=== PATIENT | male | born 1940 | race Caucasian/White ===

== ENCOUNTER → 2018-03-27 | Outpatient (CLI) | payer MEDICARE ==
[2018-03-27 10:27] LABS: Blood Urea Nitrogen 16 mg/dL (9-20)
--- NOTE | 2018-03-27 11:42 | CT ---
EXAMINATION TYPE: CT urogram wo/w con DATE OF EXAM: 03/27/2018 COMPARISON: NONE HISTORY: microscopic hematuria CT DLP: 3280.7 mGycm, Automated Exposure Control for Dose Reduction was Utilized. CONTRAST: CT scan of the abdomen and pelvis is performed without oral and without and with IV Contrast, patient injected with 100 mL of Isovue 300. Urogram protocol with Three-D reconstructed images created on in dependent workstation and reviewed FINDINGS: KUB: Noncontrast images show some central vascular calcifications on the left. No distinct renal calc chris are seen bilaterally. Postcontrast images show symmetric cortical medullary uptake and excretion from both kidneys without evidence of hydronephrosis bilaterally. There are a few small simple appearing cyst centrally in the right kidney measuring roughly 1.5 cm in size seen best series 19 image 29 and image 30 anteriorly. N o suspicious solid or cystic renal mass is identified bilaterally. There is fairly satisfactory opacification of both ureters except for distal left ureter. No suspicio us calcification or dilatation is present. No worrisome mass or suspicious wall thickening or calculu s is identified in bladder. A few right-sided pelvic phleboliths are seen. LUNG BASES: There is posterior linear scarring and/or atelectasis. Coronary calcification in the dist al RCA distribution is noted. LIVER/GB: Liver is diffusely low dense relative to spleen on noncontrast images consistent with fatty infiltration. Cholecystectomy clips are present. PANCREAS: No significant abnormality is seen. SPLEEN: No significant abnormality is seen. ADRENALS: No significant abnormality is seen. BOWEL: Appendix is felt within normal limits extending medially from cecum. There is no suspicious sm all or large bowel dilatation. PROSTATE/SEMINAL VESICLES: Prostate gland is felt upper limits of normal in size. LYMPH NODES: No greater than 1cm abdominal or pelvic lymph nodes are appreciated. OSSEOUS STRUCTURES: There is moderate multilevel spurring in the thoracolumbar spine. There is advanc ed disc space narrowing lumbosacral junction. There is facet arthropathy lower lumbar levels. There i s moderate degenerative change in both hips. OTHER: There is moderate to severe calcified plaque in the aorta extending into branch vessels. Slig ht ectasia is seen. No greater than 3 cm aneurysmal change is identified. There are coils from bilateral inguinal hernia repair surgery. No suspicious recurrent hernia is seen .. IMPRESSION: 1. No suspicious finding is seen to account for patient's symptoms of microscopic hematuria.
== END | disposition home or self-care (01) ==
LOC: RADCTMAIN 09:49
PROVIDERS: ATTEND Urology
DX: R31.21 Asymptomatic microscopic hematuria (principal); Z88.0 Allergy status to penicillin
CPT/HCPCS: 82565; 84520; 74178; 36415; 74400; Q9967

== ENCOUNTER 2019-04-09 08:51 | Emergency (ER) | payer MEDICARE ==
[2019-04-09] MEDS ORDERED: SODIUM CHLORIDE 0.9% 1,000 ML IV STA ×2 (09:28)
[2019-04-09] MEDS ORDERED: methylPREDNISolone SOD SUCCI 125 MG/2 ML VIAL IV STA (09:28)
[2019-04-09] MEDS ORDERED: IPRATROPIUM-ALBUTEROL 3 ML NEB INHALATION STA (09:28)
--- NOTE | 2019-04-09 09:42 | ED ---
General Adult HPI - General Source: patient, RN notes reviewed, old records reviewed Mode of arrival: ambulatory Limitations: no limitations <Grace Pickett - Last Filed: 04/09/19 12:31> <Filiberto Mcintyre - Last Filed: 04/09/19 12:48> - General Chief complaint: Shortness of Breath Stated complaint: adriel Time Seen by Provider: 04/09/19 09:09 - History of Present Illness Initial comments: Patient is a 78-year-old male who presents emergency department today with progressive dyspnea for the past few days. Patient reports that he saw his clinical applications manager Dr. Hearn, started on new inhaler. Patient reports that it seems like he still continued difficulty breathing despite this inhaler, and states that he has had some throat and tongue irritation. Patient states that he's had some episodes of difficulty breathing and diaphoresis. Patient reportedly would be breathing quickly. Patient is here with his and daughter. They state that he's had no specific chest pain or nausea or vomiting. (Grace Pickett) - Related Data Home Medications Medication Instructions Recorded Confirmed Lisinopril [Zestril] 20 mg PO DAILY 04/09/19 04/09/19 Ranitidine HCl [Zantac] 150 mg PO DAILY PRN 04/09/19 04/09/19 Simvastatin [Zocor] 40 mg PO HS 04/09/19 04/09/19 Previous Rx's Medication Instructions Recorded Clindamycin [Cleocin] 450 mg PO TID 7 Days capsule 04/09/19 predniSONE 20 mg PO BID #10 tab 04/09/19 Allergies Allergy/AdvReac Type Severity Reaction Status Date / Time Penicillins Allergy Rash/Hives Verified 04/09/19 09:24 Review of Systems ROS Other: All systems not noted in ROS Statement are negative. <Grace Pickett - Last Filed: 04/09/19 12:31> ROS Other: All systems not noted in ROS Statement are negative. <Filiberto Mcintyre - Last Filed: 04/09/19 12:48> ROS Statement: Those systems with pertinent positive or pertinent negative responses have been documented in the HPI. Past Medical History Past Medical History: COPD, Hyperlipidemia, Hypertension History of Any Multi-Drug Resistant Organisms: None Reported Past Surgical History: Cholecystectomy, Hernia Repair Past Psychological History: No Psychological Hx Reported Smoking Status: Former smoker Past Alcohol Use History: None Reported Past Drug Use History: None Reported <Grace Pickett - Last Filed: 04/09/19 12:31> General Exam Limitations: no limitations General appearance: alert, in no apparent distress Head exam: Present: atraumatic, normocephalic, normal inspection Eye exam: Present: normal appearance, PERRL, EOMI. Absent: scleral icterus, c onjunctival injection, periorbital swelling ENT exam: Present: normal exam, mucous membranes moist Neck exam: Present: normal inspection. Absent: tenderness, meningismus, lymphadenopathy Respiratory exam: Present: wheezes (Waiting a right lower lung field.). Absent: normal lung sounds bilaterally, respiratory distress, rales, rhonchi, stridor Cardiovascular Exam: Present: regular rate, normal rhythm, normal heart sounds. Absent: systolic murmur, diastolic murmur, rubs, gallop, clicks GI/Abdominal exam: Present: soft, normal bowel sounds. Absent: distended, tenderness, guarding, rebound, rigid Extremities exam: Present: normal inspection, full ROM, normal capillary refill. Absent: tenderness, pedal edema, joint swelling, calf tenderness Back exam: Present: normal inspection Neurological exam: Present: alert, oriented X3, CN II-XII intact Psychiatric exam: Present: normal affect Skin exam: Present: warm, dry, intact, normal color. Absent: rash <Grace Pickett - Last Filed: 04/09/19 12:31> - General Exam Comments Initial Comments: Patient is a 78-year-old male. Alert and oriented. No significant distress. (Grace Pickett) Course <Filiberto Mcintyre - Last Filed: 04/09/19 12:48> Vital Signs 04/09/19 04/09/19 04/09/19 08:55 10:08 10:27 Temperature 98.4 F Pulse Rate 66 68 72 Respiratory 20 Rate Blood Pressure 158/72 O2 Sat by Pulse 96 Oximetry - Reevaluation(s) Reevaluation #1: 04/09/19 12:47 Patient reevaluated by myself, Dr. Mcintyre. Patient denies any dyspnea at all at this time. Patient complains of discomfort of the right side of the jaw. There is mild swelling of the right parotid gland, approximately 2 x 2 centimeters raised approximately half centimeter. There is some tenderness to this area. No abnormality noticed inside the mouth or otherwise on the face except for a small healing sore on the right lower lip. Patient states this is been there for over one week. Patient family updated on results and plan. They're comfortable with discharge home. Patient will be started with antibiotics for probable parotiditis with ENT follow-up. Patient also is advised close follow- up with his pulmonary physician. (Filiberto Mcintyre) Medical Decision Making - Lab Data Result diagrams: 04/09/19 10:08 04/09/19 10:08 - Radiology Data Radiology results: report reviewed <Grace Pickett - Last Filed: 04/09/19 12:31> - Lab Data Result diagrams: 04/09/19 10:08 04/09/19 10:08 <Filiberto Mcintyre - Last Filed: 04/09/19 12:48> - Lab Data Lab Results 04/09/19 04/09/19 04/09/19 Range/Units 10:08 10:08 10:08 WBC 8.1 (3.8-10.6) k/uL RBC 5.01 (4.30-5.90) m/uL Hgb 14.4 (13.0-17.5) gm/dL Hct 42.8 (39.0-53.0) % MCV 85.5 (80.0-100.0) fL MCH 28.6 (25.0-35.0) pg MCHC 33.5 (31.0-37.0) g/dL RDW 14.8 (11.5-15.5) % Plt Count 222 (150-450) k/uL Neutrophils % 62 % Lymphocytes % 25 % Monocytes % 8 % Eosinophils % 2 % Basophils % 1 % Neutrophils # 5.0 (1.3-7.7) k/uL Lymphocytes # 2.0 (1.0-4.8) k/uL Monocytes # 0.7 (0-1.0) k/uL Eosinophils # 0.2 (0-0.7) k/uL Basophils # 0.0 (0-0.2) k/uL PT (9.0-12.0) sec INR (<1.2) APTT (22.0-30.0) sec Sodium 140 (137-145) mmol/L Potassium 4.5 (3.5-5.1) mmol/L Chloride 107 (98-107) mmol/L Carbon Dioxide 23 (22-30) mmol/L Anion Gap 10 mmol/L BUN 19 (9-20) mg/dL Creatinine 0.91 (0.66-1.25) mg/dL Est GFR (CKD-EPI)AfAm >90 (>60 ml/min/1.73 sqM) Est GFR (CKD-EPI)NonAf 81 (>60 ml/min/1.73 sqM) Glucose 106 H (74-99) mg/dL Calcium 9.4 (8.4-10.2) mg/dL Magnesium 2.0 (1.6-2.3) mg/dL Total Bilirubin 1.5 H (0.2-1.3) mg/dL AST 29 (17-59) U/L ALT 50 (21-72) U/L Alkaline Phosphatase 42 (38-126) U/L Troponin I (0.000-0.034) ng/mL NT-Pro-B Natriuret Pep 90 pg/mL Total Protein 7.0 (6.3-8.2) g/dL Albumin 4.3 (3.5-5.0) g/dL 04/09/19 04/09/19 Range/Units 10:08 10:08 WBC (3.8-10.6) k/uL RBC (4.30-5.90) m/uL Hgb (13.0-17.5) gm/dL Hct (39.0-53.0) % MCV (80.0-100.0) fL MCH (25.0-35.0) pg MCHC (31.0-37.0) g/dL RDW (11.5-15.5) % Plt Count (150-450) k/uL Neutrophils % % Lymphocytes % % Monocytes % % Eosinophils % % Basophils % % Neutrophils # (1.3-7.7) k/uL Lymphocytes # (1.0-4.8) k/uL Monocytes # (0-1.0) k/uL Eosinophils # (0-0.7) k/uL Basophils # (0-0.2) k/uL PT 9.9 (9.0-12.0) sec INR 0.9 (<1.2) APTT 24.4 (22.0-30.0) sec Sodium (137-145) mmol/L Potassium (3.5-5.1) mmol/L Chloride (98-107) mmol/L Carbon Dioxide (22-30) mmol/L Anion Gap mmol/L BUN (9-20) mg/dL Creatinine (0.66-1.25) mg/dL Est GFR (CKD-EPI)AfAm (>60 ml/min/1.73 sqM) Est GFR (CKD-EPI)NonAf (>60 ml/min/1.73 sqM) Glucose (74-99) mg/dL Calcium (8.4-10.2) mg/dL Magnesium (1.6-2.3) mg/dL Total Bilirubin (0.2-1.3) mg/dL AST (17-59) U/L ALT (21-72) U/L Alkaline Phosphatase (38-126) U/L Troponin I <0.012 (0.000-0.034) ng/mL NT-Pro-B Natriuret Pep pg/mL Total Protein (6.3-8.2) g/dL Albumin (3.5-5.0) g/dL 04/09/19 10:52 EKG shows sinus rhythm normal EKG noted. Ventricular rate of 63 beats were minute. Verbal 184 ms. Correct duration 82 ms QT QTc is 432/442 ms. (Grace Pickett) Disposition Is patient prescribed a controlled substance at d/c from ED?: No Time of Disposition: 12:31 <Grace Pickett - Last Filed: 04/09/19 12:31> <Filiberto Mcintyre - Last Filed: 04/09/19 12:48> Clinical Impression: Parotitis not due to mumps, Shortness of breath Disposition: HOME SELF-CARE Condition: Good Instructions (If sedation given, give patient instructions): Emphysema (ED), Sialoadenitis (ED) Additional Instructions: Patient denies to follow-up with primary care doctor. Return to the emergency department if any alarming signs or symptoms occur. Take the medications as prescribed and follow-up with ENT as well. Patient advised to hold the inhaler use the steroids and antibiotics as prescribed. Prescriptions: Clindamycin [Cleocin] 450 mg PO TID 7 Days capsule predniSONE 20 mg PO BID #10 tab Referrals: Christian Potter DO [Primary Care Provider] - 1-2 days Morales Smallwood MD [STAFF PHYSICIAN] - 1-2 days
[2019-04-09 10:22] LABS: Basophils % (A) 1 %; Eosinophils # (A) 0.2 k/uL (0-0.7); Eosinophils % (A) 2 %; HCT 42.8 % (39.0-53.0); HGB 14.4 gm/dL (13.0-17.5); Lymphocytes % (A) 25 %; MCH 28.6 pg (25.0-35.0); MCHC 33.5 g/dL (31.0-37.0); MCV 85.5 fL (80.0-100.0); Mean Platelet Volume 7.7; Monocytes # (A) 0.7 k/uL (0-1.0); Monocytes % (A) 8 %; Neutrophils % (A) 62 %; Platelet Count 222 k/uL (150-450); RBC 5.01 m/uL (4.30-5.90); RDW 14.8 % (11.5-15.5); WBC 8.1 k/uL (3.8-10.6)
[2019-04-09 10:34] LABS: ALT 50 U/L (21-72); AST 29 U/L (17-59); Albumin 4.3 g/dL (3.5-5.0); Alkaline Phosphatase 42 U/L (38-126); Blood Urea Nitrogen 19 mg/dL (9-20); Calcium 9.4 mg/dL (8.4-10.2); Carbon Dioxide 23 mmol/L (22-30); Glucose 106 mg/dL (74-99); Potassium 4.5 mmol/L (3.5-5.1); Sodium 140 mmol/L (137-145); Total Bilirubin 1.5 mg/dL (0.2-1.3)
[2019-04-09 10:46] LABS: INR 0.9 (<1.2); Partial Thromboplastin Time 24.4 sec (22.0-30.0); Prothrombin Time 9.9 sec (9.0-12.0)
--- NOTE | 2019-04-09 10:49 | XR ---
EXAMINATION TYPE: XR chest 2V DATE OF EXAM: 04/09/2019 COMPARISON: NONE HISTORY: Shortness of breath TECHNIQUE: Frontal and lateral views of the chest are obtained. FINDINGS: Scattered senescent parenchymal changes noted. Hyperinflation compatible with COPD. No evidence for infiltrate. No evidence for atelectasis. Heart size is stable. Mediastinal structures are stable and grossly unremarkable. No evidence for hilar prominence. Degenerative changes dorsal spine. IMPRESSION: 1. No evidence for acute pulmonary disease.
[2019-04-09 10:50] LABS: Anion Gap 10 mmol/L; Chloride 107 mmol/L (98-107)
[2019-04-09 12:56] VITALS: BP 185/76; PULSE 65; RESP 19; TEMP 97.9
== END 2019-04-09 12:55 | disposition home or self-care (01) ==
LOC: EC 08:51
DX: R06.02 Shortness of breath (principal); K11.20 Sialoadenitis, unspecified; R61 Generalized hyperhidrosis; E78.5 Hyperlipidemia, unspecified; I10 Essential (primary) hypertension; Z87.09 Personal history of other diseases of the respiratory system; Z87.891 Personal history of nicotine dependence; Z79.899 Other long term (current) drug therapy; Z88.0 Allergy status to penicillin
CPT/HCPCS: 36415; 94640; 93005; 83880; 80053; 83735; 84484; 85025; 85610; 85730; 87040; 71046; 99285; 96374; 96361; J2930

== ENCOUNTER 2019-05-09 07:44 | Emergency (ER) | payer MEDICARE ==
--- NOTE | 2019-05-09 08:22 | ED ---
General Adult HPI - General Chief complaint: Weakness Stated complaint: Weakness Time Seen by Provider: 05/09/19 07:45 Source: patient, EMS, RN notes reviewed Mode of arrival: EMS Limitations: no limitations - History of Present Illness Initial comments: 78-year-old male presents with episode of palpitations, lightheadedness and diaphoresis. Symptoms began this morning upon wakening. He has recent diagnosis of atrial fibrillation within the past one week. He was started on anticoagulation as well as metoprolol 50 mg once daily. At the onset of the symptoms he had not taken his medication. He felt generalized weakness. No focal numbness or weakness. No headache. He had no chest pain associated with his palpitations. His symptoms have mostly resolved with time my evaluation he feels some generalized weakness but is otherwise without complaint. He had taken his metoprolol prior to arrival. Denies nausea vomiting or diarrhea. Denies dysuria or hematuria. Denies melena or bright red rectal bleeding. - Related Data Home Medications Medication Instructions Recorded Confirmed Ranitidine HCl [Zantac] 150 mg PO DAILY PRN 04/09/19 05/09/19 Simvastatin [Zocor] 40 mg PO HS 04/09/19 05/09/19 Albuterol Inhaler [Ventolin Hfa 1 - 2 puff INHALATION RT-Q6H PRN 05/04/19 05/09/19 Inhaler] Previous Rx's Medication Instructions Recorded Apixaban [Eliquis] 5 mg PO BID #60 tab 05/06/19 Metoprolol Succinate (ER) [Toprol 50 mg PO DAILY #30 tab 05/06/19 Xl] Allergies Allergy/AdvReac Type Severity Reaction Status Date / Time Penicillins Allergy Rash/Hives Verified 05/09/19 07:50 Review of Systems ROS Statement: Those systems with pertinent positive or pertinent negative responses have been documented in the HPI. ROS Other: All systems not noted in ROS Statement are negative. Past Medical History Past Medical History: Hyperlipidemia, Hypertension History of Any Multi-Drug Resistant Organisms: None Reported Past Surgical History: Cholecystectomy, Hernia Repair, Orthopedic Surgery Additional Past Surgical History / Comment(s): Left elbow bones chips removed Past Psychological History: No Psychological Hx Reported Smoking Status: Former smoker Past Alcohol Use History: None Reported Past Drug Use History: None Reported - Past Family History Father Family Medical History: Congestive Heart Failure (CHF) Mother Family Medical History: Cancer General Exam Limitations: no limitations General appearance: alert, in no apparent distress Head exam: Present: atraumatic, normocephalic Eye exam: Present: normal appearance, PERRL, EOMI ENT exam: Present: normal exam Neck exam: Present: normal inspection. Absent: tenderness, meningismus Respiratory exam: Present: normal lung sounds bilaterally, respiratory distress Cardiovascular Exam: Present: regular rate, normal rhythm GI/Abdominal exam: Present: soft. Absent: distended, tenderness, guarding Extremities exam: Present: normal inspection, normal capillary refill. Absent: pedal edema Neurological exam: Present: alert, oriented X3, CN II-XII intact. Absent: motor sensory deficit Psychiatric exam: Present: normal affect, normal mood Skin exam: Present: warm, dry, intact, pallor Course Vital Signs 05/09/19 05/09/19 05/09/19 07:50 09:11 09:30 Temperature 98.4 F 98.2 F Pulse Rate 62 56 L 58 L Respiratory 18 16 18 Rate Blood Pressure 175/65 170/75 158/68 O2 Sat by Pulse 95 96 98 Oximetry EKG Findings - EKG Comments: EKG Findings:: EKG: Sinus bradycardia rate of 59, OR interval 182, QRS duration 84, QTC 423, no ST segment elevation or depression. Medical Decision Making - Medical Decision Making 78-year-old male recent diagnosis of atrial fibrillation presenting with palpitations, lightheadedness. I suspect based on history that this patient was in A. fib and had converted prior to arrival. He had taken his dose of metoprolol XL prior to arrival. He is in sinus rhythm stable vitals upon arrival. He has normal CBC, normal CMP mild lactic acid 2.7 treated with normal saline. He has chest x-ray with no acute cardiopulmonary disease. On reeva luation he feels completely well, he has no complaints. All for observation for telemetry and cardiology consultation, he declines. He will monitor both blood pressure and heart rate at home. He will return with worsening or changing symptoms. He does have close follow-up with cardiology. - Lab Data Result diagrams: 05/09/19 08:07 05/09/19 08:07 Lab Results 05/09/19 05/09/19 05/09/19 Range/Units 08:07 08:07 08:07 WBC 7.8 (3.8-10.6) k/uL RBC 4.56 (4.30-5.90) m/uL Hgb 13.4 (13.0-17.5) gm/dL Hct 40.7 (39.0-53.0) % MCV 89.2 (80.0-100.0) fL MCH 29.3 (25.0-35.0) pg MCHC 32.9 (31.0-37.0) g/dL RDW 13.6 (11.5-15.5) % Plt Count 213 (150-450) k/uL Neutrophils % 64 % Lymphocytes % 22 % Monocytes % 9 % Eosinophils % 2 % Basophils % 0 % Neutrophils # 5.0 (1.3-7.7) k/uL Lymphocytes # 1.7 (1.0-4.8) k/uL Monocytes # 0.7 (0-1.0) k/uL Eosinophils # 0.2 (0-0.7) k/uL Basophils # 0.0 (0-0.2) k/uL PT (9.0-12.0) sec INR (<1.2) APTT (22.0-30.0) sec Sodium 139 (137-145) mmol/L Potassium 3.9 (3.5-5.1) mmol/L Chloride 108 H (98-107) mmol/L Carbon Dioxide 21 L (22-30) mmol/L Anion Gap 10 mmol/L BUN 20 (9-20) mg/dL Creatinine 0.90 (0.66-1.25) mg/dL Est GFR (CKD-EPI)AfAm >90 (>60 ml/min/1.73 sqM) Est GFR (CKD-EPI)NonAf 82 (>60 ml/min/1.73 sqM) Glucose 130 H (74-99) mg/dL Plasma Lactic Acid Se 2.7 H* (0.7-2.0) mmol/L Calcium 9.1 (8.4-10.2) mg/dL Magnesium 2.0 (1.6-2.3) mg/dL Total Bilirubin 1.2 (0.2-1.3) mg/dL AST 32 (17-59) U/L ALT 64 (21-72) U/L Alkaline Phosphatase 36 L (38-126) U/L Troponin I (0.000-0.034) ng/mL NT-Pro-B Natriuret Pep pg/mL Total Protein 6.4 (6.3-8.2) g/dL Albumin 3.7 (3.5-5.0) g/dL Urine Color Urine Appearance (Clear) Urine pH (5.0-8.0) Ur Specific [place] (1.001-1.035) Urine Protein (Negative) Urine Glucose (UA) (Negative) Urine Ketones (Negative) Urine Blood (Negative) Urine Nitrite (Negative) Urine Bilirubin (Negative) Urine Urobilinogen (<2.0) mg/dL Ur Leukocyte Esterase (Negative) 05/09/19 05/09/19 05/09/19 Range/Units 08:07 08:07 08:07 WBC (3.8-10.6) k/uL RBC (4.30-5.90) m/uL Hgb (13.0-17.5) gm/dL Hct (39.0-53.0) % MCV (80.0-100.0) fL MCH (25.0-35.0) pg MCHC (31.0-37.0) g/dL RDW (11.5-15.5) % Plt Count (150-450) k/uL Neutrophils % % Lymphocytes % % Monocytes % % Eosinophils % % Basophils % % Neutrophils # (1.3-7.7) k/uL Lymphocytes # (1.0-4.8) k/uL Monocytes # (0-1.0) k/uL Eosinophils # (0-0.7) k/uL Basophils # (0-0.2) k/uL PT 9.7 (9.0-12.0) sec INR 0.9 (<1.2) APTT 23.5 (22.0-30.0) sec Sodium (137-145) mmol/L Potassium (3.5-5.1) mmol/L Chloride (98-107) mmol/L Carbon Dioxide (22-30) mmol/L Anion Gap mmol/L BUN (9-20) mg/dL Creatinine (0.66-1.25) mg/dL Est GFR (CKD-EPI)AfAm (>60 ml/min/1.73 sqM) Est GFR (CKD-EPI)NonAf (>60 ml/min/1.73 sqM) Glucose (74-99) mg/dL Plasma Lactic Acid Se (0.7-2.0) mmol/L Calcium (8.4-10.2) mg/dL Magnesium (1.6-2.3) mg/dL Total Bilirubin (0.2-1.3) mg/dL AST (17-59) U/L ALT (21-72) U/L Alkaline Phosphatase (38-126) U/L Troponin I <0.012 (0.000-0.034) ng/mL NT-Pro-B Natriuret Pep 109 pg/mL Total Protein (6.3-8.2) g/dL Albumin (3.5-5.0) g/dL Urine Color Urine Appearance (Clear) Urine pH (5.0-8.0) Ur Specific [place] (1.001-1.035) Urine Protein (Negative) Urine Glucose (UA) (Negative) Urine Ketones (Negative) Urine Blood (Negative) Urine Nitrite (Negative) Urine Bilirubin (Negative) Urine Urobilinogen (<2.0) mg/dL Ur Leukocyte Esterase (Negative) 05/09/19 Range/Units 09:30 WBC (3.8-10.6) k/uL RBC (4.30-5.90) m/uL Hgb (13.0-17.5) gm/dL Hct (39.0-53.0) % MCV (80.0-100.0) fL MCH (25.0-35.0) pg MCHC (31.0-37.0) g/dL RDW (11.5-15.5) % Plt Count (150-450) k/uL Neutrophils % % Lymphocytes % % Monocytes % % Eosinophils % % Basophils % % Neutrophils # (1.3-7.7) k/uL Lymphocytes # (1.0-4.8) k/uL Monocytes # (0-1.0) k/uL Eosinophils # (0-0.7) k/uL Basophils # (0-0.2) k/uL PT (9.0-12.0) sec INR (<1.2) APTT (22.0-30.0) sec Sodium (137-145) mmol/L Potassium (3.5-5.1) mmol/L Chloride (98-107) mmol/L Carbon Dioxide (22-30) mmol/L Anion Gap mmol/L BUN (9-20) mg/dL Creatinine (0.66-1.25) mg/dL Est GFR (CKD-EPI)AfAm (>60 ml/min/1.73 sqM) Est GFR (CKD-EPI)NonAf (>60 ml/min/1.73 sqM) Glucose (74-99) mg/dL Plasma Lactic Acid Se (0.7-2.0) mmol/L Calcium (8.4-10.2) mg/dL Magnesium (1.6-2.3) mg/dL Total Bilirubin (0.2-1.3) mg/dL AST (17-59) U/L ALT (21-72) U/L Alkaline Phosphatase (38-126) U/L Troponin I (0.000-0.034) ng/mL NT-Pro-B Natriuret Pep pg/mL Total Protein (6.3-8.2) g/dL Albumin (3.5-5.0) g/dL Urine Color Yellow Urine Appearance Clear (Clear) Urine pH 5.5 (5.0-8.0) Ur Specific [place] 1.019 (1.001-1.035) Urine Protein Negative (Negative) Urine Glucose (UA) Negative (Negative) Urine Ketones Negative (Negative) Urine Blood Negative (Negative) Urine Nitrite Negative (Negative) Urine Bilirubin Negative (Negative) Urine Urobilinogen <2.0 (<2.0) mg/dL Ur Leukocyte Esterase Negative (Negative) Disposition Clinical Impression: Palpitations, Dehydration Disposition: HOME SELF-CARE Condition: Fair Instructions (If sedation given, give patient instructions): Heart Palpitations (ED) Is patient prescribed a controlled substance at d/c from ED?: No Referrals: Christian Potter DO [Primary Care Provider] - 1-2 days Danyel Cervantes MD [STAFF PHYSICIAN] - 1-2 days Time of Disposition: 10:37
--- NOTE | 2019-05-09 08:32 | XR ---
EXAMINATION TYPE: XR chest 2V DATE OF EXAM: 05/09/2019 COMPARISON: None HISTORY: 78-year-old male with weakness TECHNIQUE: PA and lateral views FINDINGS: Heart normal size. Mild elongation thoracic aorta. Pulmonary vasculature within normal limits. Strand y atelectasis in lower lungs. No consolidation or pleural effusion. IMPRESSION: No acute cardiopulmonary process.
[2019-05-09 08:53] LABS: Basophils % (A) 0 %; Eosinophils # (A) 0.2 k/uL (0-0.7); Eosinophils % (A) 2 %; HCT 40.7 % (39.0-53.0); HGB 13.4 gm/dL (13.0-17.5); Lymphocytes # (A) 1.7 k/uL (1.0-4.8); Lymphocytes % (A) 22 %; MCH 29.3 pg (25.0-35.0); MCHC 32.9 g/dL (31.0-37.0); MCV 89.2 fL (80.0-100.0); Monocytes # (A) 0.7 k/uL (0-1.0); Monocytes % (A) 9 %; Neutrophils % (A) 64 %; Platelet Count 213 k/uL (150-450); RBC 4.56 m/uL (4.30-5.90); RDW 13.6 % (11.5-15.5); WBC 7.8 k/uL (3.8-10.6)
[2019-05-09 09:02] LABS: INR 0.9 (<1.2); Partial Thromboplastin Time 23.5 sec (22.0-30.0); Prothrombin Time 9.7 sec (9.0-12.0)
[2019-05-09 09:09] LABS: ALT 64 U/L (21-72); AST 32 U/L (17-59); African American GFR (CKD) >90 (>60 ml/min/1.73 sqM); Albumin 3.7 g/dL (3.5-5.0); Alkaline Phosphatase 36 U/L (38-126); Anion Gap 10 mmol/L; Blood Urea Nitrogen 20 mg/dL (9-20); Calcium 9.1 mg/dL (8.4-10.2); Carbon Dioxide 21 mmol/L (22-30); Chloride 108 mmol/L (98-107); Glucose 130 mg/dL (74-99); Potassium 3.9 mmol/L (3.5-5.1); Sodium 139 mmol/L (137-145); Total Bilirubin 1.2 mg/dL (0.2-1.3); Total Protein 6.4 g/dL (6.3-8.2)
[2019-05-09] MEDS ORDERED: SODIUM CHLORIDE 0.9% 500 ML 500 ML IV ONE (09:24)
[2019-05-09 09:32] VITALS: RESP 18
[2019-05-09 10:25] LABS: Appearance,Urine Clear (Clear); Bilirubin,Urine Negative (Negative); Blood,Urine Negative (Negative); Color,Urine Yellow; Glucose,Urine (UA) Negative (Negative); Ketones,Urine Negative (Negative); Leukocyte Esterase,Urine Negative (Negative); Nitrite,Urine Negative (Negative); PH, Urine 5.5 (5.0-8.0); Protein,Urine Negative (Negative); Specific Gravity,Urine 1.019 (1.001-1.035); Urobilinogen,Urine <2.0 mg/dL (<2.0)
[2019-05-09 10:52] VITALS: BP 170/88; PULSE 55; TEMP 98
== END 2019-05-09 10:49 | disposition home or self-care (01) ==
LOC: EC 07:44
DX: R00.2 Palpitations (principal); E86.0 Dehydration; R53.1 Weakness; R42 Dizziness and giddiness; R61 Generalized hyperhidrosis; E78.5 Hyperlipidemia, unspecified; Z86.79 Personal history of other diseases of the circulatory system; Z82.49 Family history of ischemic heart disease and other diseases of the circulatory system; Z87.891 Personal history of nicotine dependence; Z79.899 Other long term (current) drug therapy; Z88.0 Allergy status to penicillin
CPT/HCPCS: 36415; 71046; 80053; 81003; 83605; 83735; 83880; 84484; 85025; 85610; 85730; 93005; 96360; 99285

== ENCOUNTER → 2019-06-19 | Outpatient (CLI) | payer MEDICARE ==
--- NOTE | 2019-06-19 08:15 | CT ---
EXAMINATION TYPE: CT iac wo/w con DATE OF EXAM: 06/19/2019 COMPARISON: 05/11/2014 HISTORY: Rt ear pain CT DLP: 300 mGycm Automated exposure control for dose reduction was used. CONTRAST: CT scan of the IACs is performed without and with IV Contrast, patient injected with 100 mL of Isovue 300. FINDINGS: The external auditory canals are patent bilaterally. Mastoid air cells show no evidence of abnormal opacification bilaterally. The middle ear ossicles are symmetric and unremarkable. There is no evidence of suspicious surrounding soft tissue density to suggest cholesteatoma. There is stab le chronic thickening of the right tympanic membrane. The scutum is preserved bilaterally. The cochlea and the semicircular canals are symmetric and unrem arkable. Vestibular aqueduct and internal carotid canal appear unremarkable. Temporomandibular join ts are maintained bilaterally. IMPRESSION: 1. Stable chronic thickening of the right tympanic membrane.
== END | disposition home or self-care (01) ==
LOC: RADCTMAIN 06:05
PROVIDERS: ATTEND Otolaryngology
DX: H92.01 Otalgia, right ear (principal); H73.891 Other specified disorders of tympanic membrane, right ear; Z88.0 Allergy status to penicillin
CPT/HCPCS: 82565; 84520; 70482; 36415; Q9967

== ENCOUNTER 2019-07-03 10:35 | Observation (INO) | payer MEDICARE ==
[2019-07-03] MEDS ORDERED: ASPIRIN 81 MG PO STA (10:56)
[2019-07-03] MEDS ORDERED: NITROGLYCERIN OINT 1 INCH/GM PACKET TOPICAL STA (10:56)
--- NOTE | 2019-07-03 10:59 | ED ---
General Adult HPI - General Chief complaint: Chest Pain Stated complaint: Chest pain Time Seen by Provider: 07/03/19 10:46 Source: patient, family, RN notes reviewed Mode of arrival: wheelchair Limitations: no limitations - History of Present Illness Initial comments: Patient is a pleasant 79-year-old male presenting to the emergency Department with complaints of chest discomfort. Onset of symptoms was around 4 AM. Patient woke from sleep with chest pressure that was severe. Discomfort is sternal without radiation. Discomfort is now mild at this time however not resolved. Patient did have associated dyspnea which has also improved however not resolved. Patient denies nausea. Patient was sweaty when he woke. No history of similar symptoms previously. No leg pain or leg swelling. - Related Data Home Medications Medication Instructions Recorded Confirmed Ranitidine HCl [Zantac] 150 mg PO DAILY PRN 04/09/19 07/03/19 Simvastatin [Zocor] 40 mg PO HS 04/09/19 07/03/19 Lisinopril [Zestril] 20 mg PO BID 07/03/19 07/03/19 Previous Rx's Medication Instructions Recorded Apixaban [Eliquis] 5 mg PO BID #60 tab 05/06/19 Metoprolol Succinate (ER) [Toprol 50 mg PO DAILY #30 tab 05/06/19 Xl] Allergies Allergy/AdvReac Type Severity Reaction Status Date / Time Penicillins Allergy Rash/Hives Verified 07/03/19 10:53 Review of Systems ROS Statement: Those systems with pertinent positive or pertinent negative responses have been documented in the HPI. ROS Other: All systems not noted in ROS Statement are negative. Constitutional: Denies: fever Eyes: Denies: eye pain ENT: Denies: ear pain Respiratory: Reports: as per HPI, dyspnea Cardiovascular: Reports: chest pain Endocrine: Reports: fatigue Gastrointestinal: Denies: abdominal pain, nausea Genitourinary: Denies: dysuria Musculoskeletal: Denies: back pain Skin: Denies: rash Neurological: Denies: weakness Past Medical History Past Medical History: Atrial Fibrillation, Hyperlipidemia, Hypertension History of Any Multi-Drug Resistant Organisms: None Reported Past Surgical History: Cholecystectomy, Hernia Repair, Orthopedic Surgery Additional Past Surgical History / Comment(s): Left elbow bones chips removed Past Psychological History: No Psychological Hx Reported Smoking Status: Former smoker Past Alcohol Use History: None Reported Past Drug Use History: None Reported - Past Family History Father Family Medical History: Congestive Heart Failure (CHF) Mother Family Medical History: Cancer General Exam Limitations: no limitations General appearance: alert, in no apparent distress Head exam: Present: atraumatic Eye exam: Present: normal appearance, PERRL ENT exam: Present: normal oropharynx Neck exam: Present: normal inspection Respiratory exam: Present: normal lung sounds bilaterally. Absent: chest wall tenderness Cardiovascular Exam: Present: regular rate, normal rhythm Expanded Peripheral pulses: 2+: Radial (R), Radial (L), Posterior Tibialis (R), Posterior Tibialis (L), Dorsalis Pedis (R), Dorsalis Pedis (L) GI/Abdominal exam: Present: soft. Absent: tenderness Extremities exam: Present: normal inspection. Absent: pedal edema, calf tenderness Back exam: Present: normal inspection Neurological exam: Present: alert Psychiatric exam: Present: normal affect, normal mood Skin exam: Present: normal color Course Vital Signs 07/03/19 07/03/19 10:37 11:10 Temperature 98.2 F Pulse Rate 61 62 Respiratory 18 18 Rate Blood Pressure 182/74 133/48 O2 Sat by Pulse 98 98 Oximetry EKG Findings - EKG Comments: EKG Findings:: Sinus rhythm at 64. ID 180. QRS 82. QT or 34. QTC 447. Normal axis. Normal QRS. No acute ST change. Medical Decision Making - Medical Decision Making Patient reevaluated and resting comfortably in bed, symptom free at this time. Patient and family updated on results and plan. Case was discussed in detail with Dr. Davis, covering for Dr. Whaley, who covers for Dr. Potter, who will admit. - Lab Data Result diagrams: 07/03/19 11:04 07/03/19 11:04 Lab Results 07/03/19 07/03/19 07/03/19 Range/Units 11:04 11:04 11:04 WBC 6.2 (3.8-10.6) k/uL RBC 4.34 (4.30-5.90) m/uL Hgb 13.1 (13.0-17.5) gm/dL Hct 38.0 L (39.0-53.0) % MCV 87.6 (80.0-100.0) fL MCH 30.1 (25.0-35.0) pg MCHC 34.3 (31.0-37.0) g/dL RDW 14.8 (11.5-15.5) % Plt Count 228 (150-450) k/uL Neutrophils % 65 % Lymphocytes % 25 % Monocytes % 6 % Eosinophils % 2 % Basophils % 1 % Neutrophils # 4.0 (1.3-7.7) k/uL Lymphocytes # 1.6 (1.0-4.8) k/uL Monocytes # 0.3 (0-1.0) k/uL Eosinophils # 0.1 (0-0.7) k/uL Basophils # 0.0 (0-0.2) k/uL PT (9.0-12.0) sec INR (<1.2) APTT (22.0-30.0) sec Sodium 139 (137-145) mmol/L Potassium 4.1 (3.5-5.1) mmol/L Chloride 108 H (98-107) mmol/L Carbon Dioxide 19 L (22-30) mmol/L Anion Gap 12 mmol/L BUN 18 (9-20) mg/dL Creatinine 0.83 (0.66-1.25) mg/dL Est GFR (CKD-EPI)AfAm >90 (>60 ml/min/1.73 sqM) Est GFR (CKD-EPI)NonAf 84 (>60 ml/min/1.73 sqM) Glucose 214 H (74-99) mg/dL Calcium 9.3 (8.4-10.2) mg/dL Magnesium 1.8 (1.6-2.3) mg/dL Total Bilirubin 1.1 (0.2-1.3) mg/dL AST 27 (17-59) U/L ALT 33 (21-72) U/L Alkaline Phosphatase 37 L (38-126) U/L Troponin I (0.000-0.034) ng/mL NT-Pro-B Natriuret Pep 274 pg/mL Total Protein 6.5 (6.3-8.2) g/dL Albumin 3.7 (3.5-5.0) g/dL 07/03/19 07/03/19 Range/Units 11:04 11:04 WBC (3.8-10.6) k/uL RBC (4.30-5.90) m/uL Hgb (13.0-17.5) gm/dL Hct (39.0-53.0) % MCV (80.0-100.0) fL MCH (25.0-35.0) pg MCHC (31.0-37.0) g/dL RDW (11.5-15.5) % Plt Count (150-450) k/uL Neutrophils % % Lymphocytes % % Monocytes % % Eosinophils % % Basophils % % Neutrophils # (1.3-7.7) k/uL Lymphocytes # (1.0-4.8) k/uL Monocytes # (0-1.0) k/uL Eosinophils # (0-0.7) k/uL Basophils # (0-0.2) k/uL PT 9.9 (9.0-12.0) sec INR 0.9 (<1.2) APTT 26.8 (22.0-30.0) sec Sodium (137-145) mmol/L Potassium (3.5-5.1) mmol/L Chloride (98-107) mmol/L Carbon Dioxide (22-30) mmol/L Anion Gap mmol/L BUN (9-20) mg/dL Creatinine (0.66-1.25) mg/dL Est GFR (CKD-EPI)AfAm (>60 ml/min/1.73 sqM) Est GFR (CKD-EPI)NonAf (>60 ml/min/1.73 sqM) Glucose (74-99) mg/dL Calcium (8.4-10.2) mg/dL Magnesium (1.6-2.3) mg/dL Total Bilirubin (0.2-1.3) mg/dL AST (17-59) U/L ALT (21-72) U/L Alkaline Phosphatase (38-126) U/L Troponin I <0.012 (0.000-0.034) ng/mL NT-Pro-B Natriuret Pep pg/mL Total Protein (6.3-8.2) g/dL Albumin (3.5-5.0) g/dL - Radiology Data Radiology results: image reviewed (Chest x-ray shows no acute process) Disposition Clinical Impression: Chest pain Disposition: ADMITTED IP TO THIS HOSP Is patient prescribed a controlled substance at d/c from ED?: No Referrals: Christian Potter DO [Primary Care Provider] - 1-2 days Decision Time: 12:14
[2019-07-03 11:21] LABS: Basophils % (A) 1 %; Eosinophils # (A) 0.1 k/uL (0-0.7); Eosinophils % (A) 2 %; HGB 13.1 gm/dL (13.0-17.5); Lymphocytes # (A) 1.6 k/uL (1.0-4.8); Lymphocytes % (A) 25 %; MCH 30.1 pg (25.0-35.0); MCHC 34.3 g/dL (31.0-37.0); MCV 87.6 fL (80.0-100.0); Mean Platelet Volume 7.9; Monocytes # (A) 0.3 k/uL (0-1.0); Monocytes % (A) 6 %; Neutrophils % (A) 65 %; Platelet Count 228 k/uL (150-450); RBC 4.34 m/uL (4.30-5.90); RDW 14.8 % (11.5-15.5); WBC 6.2 k/uL (3.8-10.6)
[2019-07-03 11:24] LABS: ALT 33 U/L (21-72); AST 27 U/L (17-59); African American GFR (CKD) >90 (>60 ml/min/1.73 sqM); Albumin 3.7 g/dL (3.5-5.0); Alkaline Phosphatase 37 U/L (38-126); Anion Gap 12 mmol/L; Blood Urea Nitrogen 18 mg/dL (9-20); Calcium 9.3 mg/dL (8.4-10.2); Carbon Dioxide 19 mmol/L (22-30); Chloride 108 mmol/L (98-107); Glucose 214 mg/dL (74-99); Magnesium 1.8 mg/dL (1.6-2.3); Potassium 4.1 mmol/L (3.5-5.1); Sodium 139 mmol/L (137-145); Total Bilirubin 1.1 mg/dL (0.2-1.3); Total Protein 6.5 g/dL (6.3-8.2)
[2019-07-03 11:28] LABS: INR 0.9 (<1.2); Partial Thromboplastin Time 26.8 sec (22.0-30.0); Prothrombin Time 9.9 sec (9.0-12.0)
--- NOTE | 2019-07-03 11:30 | XR ---
EXAMINATION TYPE: XR chest 2V DATE OF EXAM: 07/03/2019 COMPARISON: 05/09/2019 INDICATION: Chest pain tachycardia TECHNIQUE: Frontal and lateral views of the chest are obtained. FINDINGS: The heart size is normal. The pulmonary vasculature is normal. The lungs are clear. Spondylosis is through the thoracic spine. IMPRESSION: 1. No acute pulmonary process.
[2019-07-03] MEDS ORDERED: NITROGLYCERIN SL TABS 0.4 MG TAB SUBLINGUAL PRN (12:14)
[2019-07-03] MEDS ORDERED: FAMOTIDINE 20 MG TAB PO PRN (13:30)
--- NOTE | 2019-07-03 14:03 | P.HPIM ---
History of Present Illness 79-year-old male came in with complaints of discomfort and mainly palpitations started today morning patient chest pain was moderate amount with diaphoresis and shortness of breath as per the family. Patient pain resolved since then patient does have history of atrial fibrillation that they have a stress test weeks ago which was negative for any inducible ischemia patient is in metoprolol extended release which he didn't take today morning and may have improved his chest pain. Patient denied any pleuritic competent of the chest pain denied any association with food. Review of Systems REVIEW OF SYSTEMS: CONSTITUTIONAL: No fever, no malaise, no fatigue. HEENT: No recent visual problems or hearing problems. Denied any sore throat. CARDIOVASCULAR: No , orthopnea, PND, no syncope. PULMONARY:, no cough, no hemoptysis. GASTROINTESTINAL: No diarrhea, no nausea, no vomiting, no abdominal pain. NEUROLOGICAL: No headaches, no weakness, no numbness. HEMATOLOGICAL: Denies any bleeding or petechiae. GENITOURINARY: Denies any burning micturition, frequency, or urgency. MUSCULOSKELETAL/RHEUMATOLOGICAL: Denies any joint pain, swelling, or any muscle pain. ENDOCRINE: Denies any polyuria or polydipsia. The rest of the 14-point review of systems is negative. Past Medical History Past Medical History: Atrial Fibrillation, GERD/Reflux, Hyperlipidemia, Hypertension, Osteoarthritis (OA) Additional Past Medical History / Comment(s): Pt recently admitted to [facility] on 05/04/19 with afib/CHF. Other hx: Chronic otitis media, athritis bilateral hands. History of Any Multi-Drug Resistant Organisms: None Reported Past Surgical History: Cholecystectomy, Hernia Repair, Orthopedic Surgery Additional Past Surgical History / Comment(s): Left elbow bones chips removed, bilateral inguinal hernia repairs with mesh, colonoscopy with benign polypectomy. Past Anesthesia/Blood Transfusion Reactions: No Reported Reaction Past Psychological History: No Psychological Hx Reported Additional Psychological History / Comment(s): Pt resides with his spouse. He uses no assistive device. He drives. Smoking Status: Former smoker Past Alcohol Use History: None Reported Additional Past Alcohol Use History / Comment(s): Pt started smoking cigarettes and cigars in 1957 and quit in 2006 Past Drug Use History: None Reported - Past Family History Father Family Medical History: Congestive Heart Failure (CHF) Additional Family Medical History / Comment(s): Father had cardiac valve disease. Mother Family Medical History: Cancer Additional Family Medical History / Comment(s): Mother had "female" cancer. Medications and Allergies Home Medications Medication Instructions Recorded Confirmed Type Ranitidine HCl [Zantac] 150 mg PO DAILY PRN 04/09/19 07/03/19 History Simvastatin [Zocor] 40 mg PO HS 04/09/19 07/03/19 History Apixaban [Eliquis] 5 mg PO BID #60 tab 05/06/19 07/03/19 Rx Metoprolol Succinate (ER) [Toprol 50 mg PO DAILY #30 tab 05/06/19 07/03/19 Rx Xl] Lisinopril [Zestril] 20 mg PO BID 07/03/19 07/03/19 History Allergies Allergy/AdvReac Type Severity Reaction Status Date / Time Penicillins Allergy Rash/Hives Verified 07/03/19 10:53 Physical Exam Vitals: Vital Signs Temp Pulse Resp BP Pulse Ox 07/03/19 11:10 62 18 133/48 98 07/03/19 10:37 98.2 F 61 18 182/74 98 Intake and Output 07/02/19 07/03/19 07/03/19 22:59 06:59 14:59 Other: Weight 113.398 kg PHYSICAL EXAMINATION: GENERAL: The patient is alert and oriented x3, not in any acute distress. Well developed, well nourished. HEENT: Pupils are round and equally reacting to light. EOMI. No scleral icterus. No conjunctival pallor. Normocephalic, atraumatic. No pharyngeal erythema. No thyromegaly. CARDIOVASCULAR: S1 and S2 present. No murmurs, rubs, or gallops. PULMONARY: Chest is clear to auscultation, no wheezing or crackles. ABDOMEN: Soft, nontender, nondistended, normoactive bowel sounds. No palpable organomegaly. MUSCULOSKELETAL: No joint swelling or deformity. EXTREMITIES: No cyanosis, clubbing, or pedal edema. NEUROLOGICAL: Gross neurological examination did not reveal any focal deficits. SKIN: No rashes. Results CBC & Chem 7: 07/03/19 11:04 07/03/19 11:04 Labs: Abnormal Lab Results - Last 24 Hours (Table) 07/03/19 07/03/19 Range/Units 11:04 11:04 Hct 38.0 L (39.0-53.0) % Chloride 108 H (98-107) mmol/L Carbon Dioxide 19 L (22-30) mmol/L Glucose 214 H (74-99) mg/dL Alkaline Phosphatase 37 L (38-126) U/L Thrombosis Risk Factor Assmnt - Choose All That Apply Any of the Below Risk Factors Present?: Yes Each Factor Represents 1 point: Obesity (BMI >25) Other Risk Factors: Yes Each Risk Factor Represents 3 Points: Age 75 years or older Other congenital or acquired thrombophilia - If yes, enter type in comment: No Thrombosis Risk Factor Assessment Total Risk Factor Score: 4 Thrombosis Risk Factor Assessment Level: Moderate Risk Assessment and Plan Plan: -Chest pain, chest pressure: We will rule out a concurrent syndromes with 2 more sets of troponins and EKGs but will evaluate the patient patient had a stress test recently which did not show any inducible ischemia -Palpitations, patient does have history of A. fib continue with the his anticoagulation and metoprolol will monitor overnight for any other abnormalities patient heart rate is in 50s in sinus rhythm at this time -Hypertension -Hyperlipidemia
[2019-07-03] MEDS ORDERED: hydrALAZINE HCL 25 MG TAB PO PRN (17:10)
[2019-07-03] MEDS: NITROGLYCERIN OINT 1 INCH/GM PACKET TOPICAL SCH (19:02)
[2019-07-03] MEDS: APIXABAN 5 MG TAB PO SCH (20:30)
[2019-07-03] MEDS ORDERED: ATORVASTATIN 20 MG TAB PO SCH (21:00)
[2019-07-03] MEDS ORDERED: LISINOPRIL 20 MG TAB PO SCH (21:00)
[2019-07-04 04:13] LABS: Cholesterol 139 mg/dL (<200); HDL Cholesterol 30 mg/dL (40-60); LDL Cholesterol,Calculated 56 mg/dL (0-99); Triglycerides 266 mg/dL (<150)
[2019-07-04] MEDS: NITROGLYCERIN OINT 1 INCH/GM PACKET TOPICAL SCH ×2 (06:05)
[2019-07-04 08:10] VITALS: BP 152/68; PULSE 61; RESP 17; TEMP 98.8
[2019-07-04] MEDS: APIXABAN 5 MG TAB PO SCH (08:42)
[2019-07-04] MEDS ORDERED: LISINOPRIL 20 MG TAB PO SCH ×2 (09:00)
[2019-07-04] MEDS ORDERED: ASPIRIN 325 MG TAB PO SCH (09:00)
[2019-07-04] MEDS ORDERED: METOPROLOL SUCCINATE (ER) 50 MG TAB.ER.24H PO SCH (09:00)
--- NOTE | 2019-07-04 10:18 | P.CRDCN ---
History of Present Illness History of present illness: This is a pleasant 79-year-old male past medical history significant for atrial fibrillation paroxysmal long-term anticoagulation, hypertension, dyslipidemia and gastroesophageal reflux disease. He follows in the office with Dr. Cervantes. Consultation secondary to chest pain. He states he was checking his blood pressure at home recently and has noticed it has been increasingly elevated despite taking his prescribed medications. He also describes feeling intermittent palpitations associated with a heaviness in his chest. He talked with his PCP and his lisinopril was increased from 10 to 20 mg daily. He also describes waking up a couple of nights ago drenched in sweat with palpitations. He denies significant shortness of breath, dizziness, nausea, vomiting or diaphoresis. EKG reveals sinus mechanism with PAC's, telemetry tracings indicate persistent sinus rhythm. Chest xray is negative for an acute cardiopulmonary process. Laboratory data reviewed, CBC unremarkable, sodium 139, potassium 4.1, creatinine 0.83, magnesium 1.8, cardiac enzymes negative x3, LDL 56, proBNP 274. Current cardiac medications include eliquis 5 mg BID, lisinopril 20 mg daily, toprol 50 mg daily and simvastatin 40 mg daily. Most recent echocardiogram obtained 04/2019 revealed preserved LV systolic function with EF 55-60%. Most recent stress test in the office 06/02/2019 revealed a mild inferior wall fixed defect with normal contractility most likely secondary to diaphragmatic attenuation with no evidence of reversibility. checked his bp yesterday and it was high 180's systolic. upon arrival 188/92. has been compliant with his medications daily. recently increased his lisinopril per pcp to 20 daily from 10 daily. At the time of my exam: CONSTITUTIONAL: Denies fever. Denies chills. EYES: Denies blurred vision. Denies vision changes. Denies eye pain. EARS, NOSE, MOUTH & THROAT: Denies headache. Denies sore throat. Denies ear pain. CARDIOVASCULAR: Denies chest pain. Denies shortness of breath. Denies orthopnea. Denies PND. Denies palpitations. RESPIRATORY: Denies cough. GASTROINTESTINAL: Denies abdominal pain. Denies diarrhea. Denies constipation. Denies nausea. Denies vomiting. MUSCULOSKELETAL: Denies myalgias. INTEGUMENTARY: Denies pruitis. Denies rash. NEUROLOGIC: Denies numbness. Denies tingling. Denies weakness. PSYCHIATRIC: Denies anxiety. Denies depression. ENDOCRINE: Denies fatigue. Denies weight change. Denies polydipsia. Denies polyurina. GENITOURINARY: Denies burning, hematuria or urgency with micturation. HEMATOLOGIC: Denies history of anemia. Denies bleeding. Blood pressure 152/60 heart rate 61 afebrile and maintaining oxygen saturation on room air GENERAL: This is a 79-year-old male in no apparent distress at the time of my examination. HEENT: Head is atraumatic, normocephalic. Pupils are equal, round. Sclerae anicteric. Conjunctivae are clear. Mucous membranes of the mouth are moist. Neck is supple. There is no jugular venous distention. No carotid bruit is heard. LUNGS: Clear to auscultation no wheezes, rales or rhonchi. No chest wall tenderness is noted on palpation or with deep breathing. HEART: Regular rate and rhythm without murmurs, rubs or gallops. S1 and S2 heard. ABDOMEN: Soft, nontender. Bowel sounds are heard. No organomegaly noted. EXTREMITIES: No evidence of peripheral edema and no calf tenderness noted. VASCULAR: Radial and dorsalis pedis pulses palpated, no evidence of clubbing. NEUROLOGIC: Patient is awake, alert and oriented x3. ASSESSMENT Palpitations Uncontrolled hypertension Paroxysmal atrial fibrillation on computer terminal operator anti-coagulation, currently maintaining sinus mechanism Dyslipidemia Obesity, BMI 33 PLAN An acute coronary event has been ruled out. Symptoms suggestive that he is going in and out of a-fib and becoming quite symptomatic. No evidence of angina and normal stress test in the office last month. Increase lisinopril to 20 mg BID. Apply 30-day event monitor, report to Dr. Cervantes. Continue eliquis and toprol as previously ordered. Follow up with Dr. Cervantes upon discharge. Thank you kindly for this consultation. Nurse Practitioner note has been reviewed, I agree with a documented findings and plan of care. Patient was seen and examined. Past Medical History Past Medical History: Atrial Fibrillation, GERD/Reflux, Hyperlipidemia, Hypertension, Osteoarthritis (OA) Additional Past Medical History / Comment(s): Pt recently admitted to [facility] on 05/04/19 with afib/CHF. Other hx: Chronic otitis media, athritis bilateral hands. History of Any Multi-Drug Resistant Organisms: None Reported Past Surgical History: Cholecystectomy, Hernia Repair, Orthopedic Surgery Additional Past Surgical History / Comment(s): Left elbow bones chips removed, bilateral inguinal hernia repairs with mesh, colonoscopy with benign polypectomy. Past Anesthesia/Blood Transfusion Reactions: No Reported Reaction Past Psychological History: No Psychological Hx Reported Additional Psychological History / Comment(s): Pt resides with his spouse. He uses no assistive device. He drives. Smoking Status: Former smoker Past Alcohol Use History: None Reported Additional Past Alcohol Use History / Comment(s): Pt started smoking cigarettes and cigars in 1957 and quit in 2006 Past Drug Use History: None Reported - Past Family History Father Family Medical History: Congestive Heart Failure (CHF) Additional Family Medical History / Comment(s): Father had cardiac valve disease. Mother Family Medical History: Cancer Additional Family Medical History / Comment(s): Mother had "female" cancer. Medications and Allergies Home Medications Medication Instructions Recorded Confirmed Type Ranitidine HCl [Zantac] 150 mg PO DAILY PRN 04/09/19 07/03/19 History Simvastatin [Zocor] 40 mg PO HS 04/09/19 07/03/19 History Apixaban [Eliquis] 5 mg PO BID #60 tab 05/06/19 07/03/19 Rx Metoprolol Succinate (ER) [Toprol 50 mg PO DAILY #30 tab 05/06/19 07/03/19 Rx Xl] Lisinopril [Zestril] 20 mg PO BID 07/03/19 07/03/19 History Allergies Allergy/AdvReac Type Severity Reaction Status Date / Time Penicillins Allergy Rash/Hives Verified 07/03/19 10:53 Physical Exam Vitals: Vital Signs Temp Pulse Pulse Pulse Resp BP BP 07/04/19 04:46 98.2 F 53 L 18 07/04/19 00:00 98.0 F 60 16 07/03/19 20:22 07/03/19 20:00 97.9 F 54 L 51 L 18 07/03/19 17:03 171/66 07/03/19 16:45 97.5 F L 51 L 18 07/03/19 16:40 98 F 07/03/19 16:25 68 18 168/78 07/03/19 11:10 62 18 133/48 07/03/19 10:37 98.2 F 61 18 182/74 BP Pulse Ox 07/04/19 04:46 154/69 93 L 07/04/19 00:00 100/65 97 07/03/19 20:22 93 L 07/03/19 20:00 199/65 95 07/03/19 17:03 07/03/19 16:45 195/68 97 07/03/19 16:40 07/03/19 16:25 98 07/03/19 11:10 98 07/03/19 10:37 98 Intake and Output 07/03/19 07/04/19 07/04/19 22:59 06:59 14:59 Intake Total 390 0 Balance 390 0 Intake: Oral 390 0 Other: # Voids 1 Results 07/03/19 11:04 07/03/19 11:04 Cardiac Enzymes 07/03/19 07/03/19 07/03/19 Range/Units 11:04 11:04 16:38 AST 27 (17-59) U/L Troponin I <0.012 <0.012 (0.000-0.034) ng/mL 07/03/19 Range/Units 22:48 AST (17-59) U/L Troponin I <0.012 (0.000-0.034) ng/mL Coagulation 07/03/19 Range/Units 11:04 PT 9.9 (9.0-12.0) sec APTT 26.8 (22.0-30.0) sec Lipids 07/03/19 Range/Units 11:04 Triglycerides 266 H (<150) mg/dL Cholesterol 139 (<200) mg/dL HDL Cholesterol 30 L (40-60) mg/dL CBC 07/03/19 Range/Units 11:04 WBC 6.2 (3.8-10.6) k/uL RBC 4.34 (4.30-5.90) m/uL Hgb 13.1 (13.0-17.5) gm/dL Hct 38.0 L (39.0-53.0) % Plt Count 228 (150-450) k/uL Comprehensive Metabolic Panel 07/03/19 Range/Units 11:04 Sodium 139 (137-145) mmol/L Potassium 4.1 (3.5-5.1) mmol/L Chloride 108 H (98-107) mmol/L Carbon Dioxide 19 L (22-30) mmol/L BUN 18 (9-20) mg/dL Creatinine 0.83 (0.66-1.25) mg/dL Glucose 214 H (74-99) mg/dL Calcium 9.3 (8.4-10.2) mg/dL AST 27 (17-59) U/L ALT 33 (21-72) U/L Alkaline Phosphatase 37 L (38-126) U/L Total Protein 6.5 (6.3-8.2) g/dL Albumin 3.7 (3.5-5.0) g/dL Current Medications Generic Name Dose Route Start Last Admin Trade Name Freq PRN Reason Stop Dose Admin Apixaban 5 mg 07/03/19 21:00 07/03/19 20:30 Eliquis PO 5 mg BID NICOLE Administration Atorvastatin Calcium 20 mg 07/03/19 21:00 07/03/19 20:30 Lipitor PO 20 mg HS NICOLE Administration Famotidine 20 mg 07/03/19 13:30 Pepcid PO DAILY PRN Heartburn Lisinopril 20 mg 07/04/19 09:00 Zestril PO DAILY NICOLE Metoprolol Succinate 50 mg 07/04/19 09:00 Toprol Xl PO DAILY NICOLE Nitroglycerin 0.4 mg 07/03/19 12:14 Nitrostat SUBLINGUAL Q5M PRN Chest Pain Sodium Chloride 10 ml 07/03/19 21:00 07/03/19 20:30 Saline Flush IV 10 ml BID NICOLE Administration Intake and Output 07/03/19 07/04/19 07/04/19 22:59 06:59 14:59 Intake Total 390 0 Balance 390 0 Intake: Oral 390 0 Other: # Voids 1 07/03/19 11:04 07/03/19 11:04
--- NOTE | 2019-07-04 21:51 | DS ---
DISCHARGE SUMMARY FINAL DIAGNOSES: 1. Chest pain, possibly musculoskeletal. Myocardial infarction ruled out. 2. Palpitations. 3. History of atrial fibrillation, paroxysmal. 4. Hypertension. 5. Hyperlipidemia. DISCHARGE DISPOSITION: The patient will be discharged in stable condition with guarded prognosis. HISTORY OF PRESENT ILLNESS: This 79-year-old gentleman with a past medical history of multiple medical problems was admitted with chest pain, palpitations and other medical issues. The patient was evaluated by Cardiology, who recommended outpatient followup. On exam, vitals are stable. CARDIOVASCULAR SYSTEM: S1, S2 muffled. ABDOMEN: Soft. NERVOUS SYSTEM: No focal deficit. LABS: Within normal limits. Glucose 214. Triglycerides 266. Troponins negative. DISCHARGE ADVICE AND MEDICATIONS: 1. Diet is cardiac. 2. Activity limited until followup. 3. Follow up with Dr. Potter in 1-2 days. 4. Follow up with Dr. Meri Cervantes as recommended. 5. Zantac 150 mg daily p.r.n. 6. Zestril 20 mg p.o. b.i.d. 7. Zocor 40 mg at bedtime. 8. Eliquis 5 mg p.o. b.i.d. 9. Metoprolol 50 mg p.o. daily. Once again, the patient was discharged in a stable condition with guarded prognosis. MMODL / IJN: [id number] /
== END 2019-07-04 12:25 ==
LOC: EC 10:35 → 1SOBS 12:14
PROVIDERS: ADMIT Internal Medicine; ATTEND Internal Medicine
DX: R07.89 Other chest pain (principal); R61 Generalized hyperhidrosis; I48.0 Paroxysmal atrial fibrillation; I11.0 Hypertensive heart disease with heart failure; I50.9 Heart failure, unspecified; E78.5 Hyperlipidemia, unspecified; K21.9 Gastro-esophageal reflux disease without esophagitis; M19.90 Unspecified osteoarthritis, unspecified site; H66.90 Otitis media, unspecified, unspecified ear; M19.042 Primary osteoarthritis, left hand; M19.041 Primary osteoarthritis, right hand; E66.9 Obesity, unspecified; Z68.33 Body mass index [BMI] 33.0-33.9, adult; Z79.01 Long term (current) use of anticoagulants; Z79.899 Other long term (current) drug therapy; Z88.0 Allergy status to penicillin; Z90.49 Acquired absence of other specified parts of digestive tract; Z86.010 Personal history of colon polyps; Z87.891 Personal history of nicotine dependence; Z82.49 Family history of ischemic heart disease and other diseases of the circulatory system; Z80.49 Family history of malignant neoplasm of other genital organs
CPT/HCPCS: 99285; 36415; 93005; 93270; 83880; 80061; 80053; 83735; 84484; 85025; 85610; 85730; 71046; G0378 ×2

== ENCOUNTER 2022-07-21 14:54 | Emergency (ER) | payer MEDICARE ==
[2022-07-21 15:35] LABS: Appearance,Urine Clear (Clear); Bilirubin,Urine Negative (Negative); Blood,Urine Small (Negative); Color,Urine Yellow; Glucose,Urine (UA) Negative (Negative); Hyaline Casts,Urine 1 /lpf (0-2); Ketones,Urine Negative (Negative); Leukocyte Esterase,Urine Negative (Negative); Mucus,Urine Occasional /hpf; Nitrite,Urine Negative (Negative); PH, Urine 5.5 (5.0-8.0); Protein,Urine 1+ (Negative); RBC,Urine 18 /hpf (0-5); Specific Gravity,Urine 1.024 (1.001-1.035); Squamous Epithelial Cell,Urine <1 /hpf (0-4); WBC,Urine 3 /hpf (0-5)
--- NOTE | 2022-07-21 19:10 | CT ---
EXAMINATION TYPE: CT abdomen pelvis wo con CT DLP: 1236.9 mGycm, Automated exposure control for dose reduction was used. DATE OF EXAM: 07/21/2022 6:08 PM COMPARISON: THIS EXAM WAS READ DURING PACS DOWNTIME, NO PRIORS AVAILABLE. CLINICAL INDICATION:Male, 82 years old with history of r/o kidney stones; frequent urination TECHNIQUE: Axial CT of the abdomen and pelvis. Sagittal and coronal reformats were created on a [employer] workstation. Contrast used: None Oral contrast used: None FINDINGS: LOWER CHEST: Moderate coronary artery atherosclerosis and aortic valve calcifications. ABDOMEN Motion limits evaluation of the abdomen. LIVER: Unremarkable GALLBLADDER AND BILE DUCTS: The gallbladder is surgically absent. PANCREAS: Unremarkable. SPLEEN: Unremarkable. ADRENAL GLANDS: Unremarkable. KIDNEYS AND URETERS: Suspected left subcentimeter nonobstructing calculus measuring up to 4 mm. No ev idence of hydronephrosis. No evidence of right renal calculus. Right renal cysts present. PELVIS BLADDER: Mild thickening of the urinary bladder wall which is likely due to underdistention. REPRODUCTIVE: Prostate is enlarged in size measuring 5.0 cm in transverse dimension. ABDOMEN & PELVIS STOMACH AND BOWEL: No evidence of bowel obstruction. Appendix is normal. Moderate stool burden throug hout the colon. PERITONEUM: No evidence of pneumoperitoneum or free fluid. VASCULATURE: No evidence of aortic aneurysm. Atherosclerosis of the arterial vasculature. MUSCULOSKELETAL: No acute osseous abnormalities, multilevel disc degeneration changes seen throughout the spine. There is multilevel facet joint arthropathy. LYMPH NODES: No gross evidence for lymphadenopathy. SOFT TISSUE/ABDOMINAL WALL: Fat filled inguinal hernia. Surgical changes with hernia repair noted inf eriorly. IMPRESSION: 1. No evidence of obstructive uropathy. 2. No obstructing left renal calculi. 3. Hernia repair changes with persistent fatty changes of left inguinal canal. 4. Prostatomegaly. Correlate with serum PSA.
[2022-07-21 19:47] LABS: Basophils # (A) 0.1 k/uL (0-0.2); Basophils % (A) 1 %; Eosinophils # (A) 0.2 k/uL (0-0.7); Eosinophils % (A) 2 %; HCT 38.9 % (39.0-53.0); HGB 12.8 gm/dL (13.0-17.5); Lymphocytes # (A) 2.2 k/uL (1.0-4.8); Lymphocytes % (A) 26 %; MCHC 32.9 g/dL (31.0-37.0); MCV 88.2 fL (80.0-100.0); Mean Platelet Volume 8.8; Monocytes # (A) 0.7 k/uL (0-1.0); Monocytes % (A) 9 %; Neutrophils # (A) 5.1 k/uL (1.3-7.7); Neutrophils % (A) 60 %; Platelet Count 238 k/uL (150-450); RBC 4.41 m/uL (4.30-5.90); WBC 8.5 k/uL (3.8-10.6)
--- NOTE | 2022-07-21 19:55 | ED ---
Male Urogenital HPI - General Chief complaint: Abdominal Pain Stated complaint: Burning, freq urination Time Seen by Provider: 07/21/22 19:25 Source: patient, RN notes reviewed Mode of arrival: ambulatory Limitations: no limitations - History of Present Illness Initial comments: This is a pleasant 82-year-old male presents to emergency department complaining of dysuria and frequent urination. Patient states she's getting out more at night to urinate. Patient also getting some burning with urination. He denies any penile discharge. No rashes or lesions. Or chills. No back pain. No flank pain. No hematuria. No headache, no fever or chills, no changes in vision or hearing, no sore throat or difficulty with speech, no neck pain, no chest pain or shortness of breath, no abdominal pain, no nausea or vomiting, no changes in urination or bowel movements, no numbness or tingling, no extremity pain, no skin rashes or les ions. Patient denies any rectal pain. No perineal pain. Past medical, surgical, social, and family history reviewed. Note the patient was just treated with cefuroxime for suspected urinary tract i nfection. Patient finished the course a few days ago and then started having the symptoms again. He states antibiotic did seem to improve the symptomology. - Related Data Home Medications Medication Instructions Recorded Confirmed Ranitidine HCl [Zantac] 150 mg PO DAILY PRN 04/09/19 07/03/19 Simvastatin [Zocor] 40 mg PO HS 04/09/19 07/03/19 lisinopriL [Zestril] 20 mg PO BID 07/03/19 07/03/19 Previous Rx's Medication Instructions Recorded Apixaban [Eliquis] 5 mg PO BID #60 tab 05/06/19 Metoprolol Succinate (ER) [Toprol 50 mg PO DAILY #30 tab 05/06/19 XL] Allergies Allergy/AdvReac Type Severity Reaction Status Date / Time Penicillins Allergy Rash/Hives Verified 07/21/22 15:13 montelukast [From Singulair] AdvReac Hallucinati Verified 07/21/22 15:13 ons Review of Systems ROS Statement: Those systems with pertinent positive or pertinent negative responses have been documented in the HPI. ROS Other: All systems not noted in ROS Statement are negative. Past Medical History Past Medical History: Atrial Fibrillation, Diabetes Mellitus, GERD/Reflux, Hyperlipidemia, Hypertension, Osteoarthritis (OA) Additional Past Medical History / Comment(s): Pt recently admitted to [facility] on 05/04/19 with afib/CHF. Other hx: Chronic otitis media, athritis bilateral hands. History of Any Multi-Drug Resistant Organisms: None Reported Past Surgical History: Cholecystectomy, Hernia Repair, Orthopedic Surgery Additional Past Surgical History / Comment(s): Left elbow bones chips removed, bilateral inguinal hernia repairs with mesh, colonoscopy with benign polypectomy. Past Anesthesia/Blood Transfusion Reactions: No Reported Reaction Past Psychological History: No Psychological Hx Reported Smoking Status: Former smoker Past Alcohol Use History: None Reported Past Drug Use History: None Reported - Past Family History Father Family Medical History: Congestive Heart Failure (CHF) Additional Family Medical History / Comment(s): Father had cardiac valve disease. Mother Family Medical History: Cancer Additional Family Medical History / Comment(s): Mother had "female" cancer. General Exam - General Exam Comments Initial Comments: No signs stable, patient afebrile. Patient does not appear to be ill or toxic. Adequate hydration. Normal capillary refill. Limitations: no limitations General appearance: alert, in no apparent distress Head exam: Present: atraumatic, normocephalic, normal inspection Eye exam: Present: normal appearance, PERRL, EOMI. Absent: scleral icterus, conjunctival injection, periorbital swelling ENT exam: Present: normal exam, mucous membranes moist Neck exam: Present: normal inspection, full ROM. Absent: tenderness, meningismus, lymphadenopathy Respiratory exam: Present: normal lung sounds bilaterally. Absent: respiratory distress, wheezes, rales, rhonchi, stridor, chest wall tenderness, accessory muscle use Cardiovascular Exam: Present: regular rate, normal rhythm, normal heart sounds. Absent: systolic murmur, diastolic murmur, rubs, gallop, clicks GI/Abdominal exam: Present: soft, normal bowel sounds. Absent: distended, tenderness, guarding, rebound, rigid Rectal exam: Present: normal inspection, normal rectal tone. Absent: prostate tenderness exam: Present: normal inspection, circumcision. Absent: testicular tenderness, urethral discharge, scrotal swelling Extremities exam: Present: normal inspection, full ROM, normal capillary refill. Absent: tenderness, pedal edema, joint swelling, calf tenderness Back exam: Present: normal inspection Neurological exam: Present: alert, oriented X3, CN II-XII intact Psychiatric exam: Present: normal affect, normal mood Skin exam: Present: warm, dry, intact, normal color. Absent: rash Course Vital Signs 07/21/22 15:11 Temperature 98.1 F Pulse Rate 86 Respiratory 20 Rate Blood Pressure 111/65 O2 Sat by Pulse 97 Oximetry - Reevaluation(s) Reevaluation #1: 07/21/22 20:53 Medical record is reviewed Symptoms are improved here in the emergency department Patient is informed of results and questions answered Patient in no distress Patient in no distress at discharge. Medical Decision Making - Medical Decision Making Patient's white blood cell count is normal 8500. Mild anemia at 12.8 hemoglobin/38.9 hematocrit. Urinalysis does show 18 red cells per high-power field, 3 white cells, less than 1 squamous epithelial cell, negative nitrate, negative leukocyte esterase, 1 hyalin casts and no bacteria. Patient also had a noncontrast CT which was ordered by the triage nurse. There was no evidence of obstructive uropathy. No evidence of renal calculi. Previous hernia repair changes noted. Prostatomegaly. Patient has no rectal pain or prostate tenderness. This is unlikely be prostatitis. However the patient did improve with a course of cefuroxime. There is no urine culture available. Patient's bladder scan only showed 50 mL of urine. Patient has no evidence of obstruction. No evidence of retention. The plan putting the patient on an antibiotic until he can see urology on Sunday or Sunday. We'll send the urine for culture. Patient does not appear to be ill or toxic otherwise. Patient was told to return to the ER for any signs or symptoms worsen. Told to return immediately if any other problems arise. All questions answered. Treatment plan discussed. Patient in agreement Every effort has been made to ensure accuracy of this dictation. However, due to the limitations of electronic medical records and dictation devices, errors in charting still occur. Supervising physician Dr. Trevizo - Lab Data Result diagrams: 07/21/22 19:36 07/21/22 19:36 Lab Results 07/21/22 07/21/22 07/21/22 Range/Units 15:15 19:36 19:36 WBC 8.5 (3.8-10.6) k/uL RBC 4.41 (4.30-5.90) m/uL Hgb 12.8 L (13.0-17.5) gm/dL Hct 38.9 L (39.0-53.0) % MCV 88.2 (80.0-100.0) fL MCH 29.0 (25.0-35.0) pg MCHC 32.9 (31.0-37.0) g/dL RDW 14.0 (11.5-15.5) % Plt Count 238 (150-450) k/uL MPV 8.8 Neutrophils % 60 % Lymphocytes % 26 % Monocytes % 9 % Eosinophils % 2 % Basophils % 1 % Neutrophils # 5.1 (1.3-7.7) k/uL Lymphocytes # 2.2 (1.0-4.8) k/uL Monocytes # 0.7 (0-1.0) k/uL Eosinophils # 0.2 (0-0.7) k/uL Basophils # 0.1 (0-0.2) k/uL Sodium 139 (137-145) mmol/L Potassium 4.7 (3.5-5.1) mmol/L Chloride 106 (98-107) mmol/L Carbon Dioxide 22 (22-30) mmol/L Anion Gap 11 mmol/L BUN 23 H (9-20) mg/dL Creatinine 0.99 (0.66-1.25) mg/dL Est GFR (CKD-EPI)AfAm 82 (>60 ml/min/1.73 sqM) Est GFR (CKD-EPI)NonAf 71 (>60 ml/min/1.73 sqM) Glucose 89 (74-99) mg/dL Calcium 9.2 (8.4-10.2) mg/dL Total Bilirubin 1.3 (0.2-1.3) mg/dL AST 28 (17-59) U/L ALT 30 (4-49) U/L Alkaline Phosphatase 65 (38-126) U/L Total Protein 6.5 (6.3-8.2) g/dL Albumin 4.2 (3.5-5.0) g/dL Urine Color Yellow Urine Appearance Clear (Clear) Urine pH 5.5 (5.0-8.0) Ur Specific [place] 1.024 (1.001-1.035) Urine Protein 1+ H (Negative) Urine Glucose (UA) Negative (Negative) Urine Ketones Negative (Negative) Urine Blood Small H (Negative) Urine Nitrite Negative (Negative) Urine Bilirubin Negative (Negative) Urine Urobilinogen 2.0 (<2.0) mg/dL Ur Leukocyte Esterase Negative (Negative) Urine RBC 18 H (0-5) /hpf Urine WBC 3 (0-5) /hpf Ur Squamous Epith Cells <1 (0-4) /hpf Hyaline Casts 1 (0-2) /lpf Urine Mucus Occasional H (None) /hpf Disposition Clinical Impression: Urinary frequency, Dysuria Disposition: HOME SELF-CARE Condition: Good Instructions (If sedation given, give patient instructions): Dysuria (ED) Additional Instructions: Take the antibiotic as directed. Call the urologist office at 8 AM Sunday morning for follow-up. Follow-up with your regular physician as directed. Return to the ER immediately if any symptoms worsen, new symptoms arise, or any other problems develop. Is patient prescribed a controlled substance at d/c from ED?: No Referrals: Efrain Núñez MD [STAFF PHYSICIAN] - As Soon As Possible Time of Disposition: 20:50
[2022-07-21 20:12] LABS: Albumin 4.2 g/dL (3.5-5.0); Calcium 9.2 mg/dL (8.4-10.2); Potassium 4.7 mmol/L (3.5-5.1); Total Bilirubin 1.3 mg/dL (0.2-1.3); Total Protein 6.5 g/dL (6.3-8.2)
[2022-07-21] MEDS ORDERED: NITROFURANTOIN MONOHYD/M-CRYST 100 MG CAP PO STA (20:49)
[2022-07-21 21:16] VITALS: BP 146/62; PULSE 57; RESP 16; TEMP 97.3
== END 2022-07-21 21:17 | disposition home or self-care (01) ==
LOC: EC 14:54
DX: R35.0 Frequency of micturition (principal); R30.0 Dysuria; E11.9 Type 2 diabetes mellitus without complications; I48.91 Unspecified atrial fibrillation; K21.9 Gastro-esophageal reflux disease without esophagitis; E78.5 Hyperlipidemia, unspecified; I10 Essential (primary) hypertension; Z87.891 Personal history of nicotine dependence; Z88.0 Allergy status to penicillin; Z88.8 Allergy status to other drugs, medicaments and biological substances; Z79.899 Other long term (current) drug therapy
CPT/HCPCS: 36415; 74176; 80053; 81001; 85025; 87086; 99284

== ENCOUNTER 2022-11-01 10:55 | Emergency (ER) | payer MEDICARE ==
--- NOTE | 2022-11-01 12:44 | ED ---
Abdominal Pain HPI - General Chief Complaint: Abdominal Pain Stated Complaint: hemorrhoid pain Time Seen by Provider: 11/01/22 11:58 Source: patient, family, RN notes reviewed, old records reviewed Mode of arrival: ambulatory Limitations: no limitations - History of Present Illness Initial Comments: 82-year-old male presents to the emergency room with complaints of leakage of loose stool since Sunday. Patient states he has problems with constipation and takes MiraLAX, milk of magnesia and prune juice every 3 days. He stopped using these medications on Sunday and continues to have leakage of stool. States that he's also noticed blood on the stool and was concerned that his hemorrhoids are bleeding. Patient and family states that he was recently diagnosed with bladder cancer and has an appointment next week with Dr. Collazo for a bladder wash. MD Complaint: abdominal pain, other (leaking stool) -: days(s) (4) Location: diffuse Migration to: no migration Severity scale (1-10): 0 Consistency: intermittent, now resolved Improves With: bowel movement Associated Symptoms: other (blood on stool) Treatments Prior to Arrival: other (MiraLAX milk of magnesia and prune juice) - Related Data Home Medications Medication Instructions Recorded Confirmed Ranitidine HCl [Zantac] 150 mg PO DAILY PRN 04/09/19 07/03/19 Simvastatin [Zocor] 40 mg PO HS 04/09/19 07/03/19 lisinopriL [Zestril] 20 mg PO BID 07/03/19 07/03/19 Previous Rx's Medication Instructions Recorded Apixaban [Eliquis] 5 mg PO BID #60 tab 05/06/19 Metoprolol Succinate (ER) [Toprol 50 mg PO DAILY #30 tab 05/06/19 XL] Nitrofurantoin Monohyd/M-Cryst 100 mg PO Q12HR #14 cap 07/21/22 [Macrobid] Allergies Allergy/AdvReac Type Severity Reaction Status Date / Time Penicillins Allergy Rash/Hives Verified 11/01/22 11:18 montelukast [From Singulair] AdvReac Hallucinati Verified 11/01/22 11:18 ons Review of Systems ROS Statement: Those systems with pertinent positive or pertinent negative responses have been documented in the HPI. ROS Other: All systems not noted in ROS Statement are negative. Past Medical History Past Medical History: Atrial Fibrillation, Diabetes Mellitus, GERD/Reflux, Hyperlipidemia, Hypertension, Osteoarthritis (OA) Additional Past Medical History / Comment(s): Pt recently admitted to [facility] on 05/04/19 with afib/CHF. Other hx: Chronic otitis media, athritis bilateral hands. History of Any Multi-Drug Resistant Organisms: None Reported Past Surgical History: Cholecystectomy, Hernia Repair, Orthopedic Surgery Additional Past Surgical History / Comment(s): Left elbow bones chips removed, bilateral inguinal hernia repairs with mesh, colonoscopy with benign polypectomy. Past Anesthesia/Blood Transfusion Reactions: No Reported Reaction Past Psychological History: No Psychological Hx Reported Smoking Status: Former smoker Past Alcohol Use History: None Reported Past Drug Use History: None Reported - Past Family History Father Family Medical History: Congestive Heart Failure (CHF) Additional Family Medical History / Comment(s): Father had cardiac valve disease. Mother Family Medical History: Cancer Additional Family Medical History / Comment(s): Mother had "female" cancer. General Exam Limitations: no limitations General appearance: alert, in no apparent distress Head exam: Present: atraumatic Neck exam: Absent: tenderness, meningismus Respiratory exam: Absent: respiratory distress, accessory muscle use Cardiovascular Exam: Present: regular rate GI/Abdominal exam: Present: soft. Absent: distended, tenderness, rigid Rectal exam: Present: normal rectal tone, hemorrhoids (Nonthrombosed), tenderness. Absent: bloody stool, fecal impaction Extremities exam: Present: normal capillary refill Back exam: Absent: tenderness, CVA tenderness (R), CVA tenderness (L) Neurological exam: Present: alert, oriented X3, normal gait Expanded Patient oriented to: Present: person, place, time Speech: Present: fluid speech Eye Response: (4) open spontaneously Motor Response: (6) obeys commands Verbal Response: (5) oriented Susie Total: 15 Psychiatric exam: Present: normal affect, normal mood Skin exam: Present: warm, dry, normal color. Absent: cyanosis, diaphoretic, petechiae, pallor Course Vital Signs 11/01/22 11/01/22 11/01/22 11:14 13:30 14:46 Temperature 97.5 F L 97.8 F 97.6 F Pulse Rate 71 74 70 Respiratory 22 20 18 Rate Blood Pressure 119/50 116/58 117/60 O2 Sat by Pulse 98 99 97 Oximetry Medical Decision Making - Medical Decision Making X-ray KUB as interpreted by me shows no evidence of free air or obstruction. Radiologist's interpretation nonspecific abdomen. He was given a dose of Lomotil in the emergency room to help with his diarrhea as he has had 4 episodes while in the emergency room. He is tolerating oral fluids, no nausea vomiting or fevers. No abdominal pain. Labs show no evidence of leukocytosis and hemoglobin and hematocrit are stable. Patient does have an elevated creatinine and is being treated for bladder cancer with Dr. Collazo scheduled for bladder wash November 09. Patient's vital signs are stable, no complaints of dizziness or abdominal pain this time. 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 He was instructed to avoid any laxatives at this time until stool becomes formed. Increase his fluid intake. Follow-up with his primary care doctor this week. Return to the emergency room with any new or concerning symptoms. Family is agreeable to this plan of care. Case discussed with Dr. Pizano. Was pt. sent in by a medical professional or institution? @ Yes, primary care doctor Did you speak to anyone other than the patient for history? @ Family Did you review nursing and triage notes? @ Agree Were old charts reviewed? @ Previous admissions Differential Diagnosis? @ bowel obstruction, electrolyte abnormality, GI bleed, viral illness, fecal impaction EKG interpreted by me (3pts min.)? @ Not applicable X-rays interpreted by me (1pt min.)? @ Yes x-ray shows no evidence of fecal impaction or obstruction. No free air. CT interpreted by me (1pt min.)? @ not Applicable U/S interpreted by me (1pt. min.)? @ Not applicable What testing was considered but not performed? (CT, X-rays, U/S, labs)? Why? @ None What meds were considered but not given? Why? @ None Did you discuss the management of the patient with other professionals? @ None Did you reconcile home meds? @ No Was smoking cessation discussed for >3mins.? @ not Applicable Was critical care preformed (if so, how long)? @ No Were there social determinants of health that impacted care today? How? (Homelessness, low income, unemployed, alcoholism, drug addiction, transportation, low edu. Level, literacy, decrease access to med. care, assisted, rehab)? @ None Was there de-escalation of care discussed even if they declined? (Discuss DNR or withdrawal of care, Hospice)? @ None What co-morbidities impacted this encounter? (DM, HTN, Smoking, COPD, CAD, Cancer, CVA, Hep., AIDS, mental health diagnosis, sleep apnea, morbid obesity)? @ Hypertension. Atrial fibrillation, diabetes, cholecystectomy, bladder cancer Was patient admitted / discharged? @ Discharged Undiagnosed new problem with uncertain prognosis? @ Enteritis Drug Therapy requiring intensive monitoring for toxicity (Heparin, Nitro, Insulin, Cardizem)? @ None Were any procedures done? @ None Diagnosis/symptom? @ Diarrhea Acute, or Chronic, or Acute on Chronic? @ Acute Uncomplicated (without systemic symptoms) or Complicated (systemic symptoms)? @ Uncomplicated Side effects of treatment? @ None Exacerbation, Progression, or Severe Exacerbation] @ Not applicable Poses a threat to life or bodily function? @ No - Lab Data Result diagrams: 11/01/22 13:23 11/01/22 13:23 Lab Results 11/01/22 11/01/22 11/01/22 Range/Units 13:23 13:23 13:23 WBC 11.9 H (3.8-10.6) k/uL RBC 4.05 L (4.30-5.90) m/uL Hgb 12.3 L (13.0-17.5) gm/dL Hct 36.5 L (39.0-53.0) % MCV 90.0 (80.0-100.0) fL MCH 30.5 (25.0-35.0) pg MCHC 33.8 (31.0-37.0) g/dL RDW 14.6 (11.5-15.5) % Plt Count 310 (150-450) k/uL MPV 8.1 Neutrophils % 71 % Lymphocytes % 17 % Monocytes % 9 % Eosinophils % 1 % Basophils % 0 % Neutrophils # 8.4 H (1.3-7.7) k/uL Lymphocytes # 2.0 (1.0-4.8) k/uL Monocytes # 1.0 (0-1.0) k/uL Eosinophils # 0.1 (0-0.7) k/uL Basophils # 0.0 (0-0.2) k/uL PT 10.8 (9.0-12.0) sec INR 1.0 (<1.2) Sodium 138 (137-145) mmol/L Potassium 4.9 (3.5-5.1) mmol/L Chloride 107 (98-107) mmol/L Carbon Dioxide 21 L (22-30) mmol/L Anion Gap 10 mmol/L BUN 39 H (9-20) mg/dL Creatinine 1.61 H (0.66-1.25) mg/dL Est GFR (CKD-EPI)AfAm 46 (>60 ml/min/1.73 sqM) Est GFR (CKD-EPI)NonAf 40 (>60 ml/min/1.73 sqM) Glucose 116 H (74-99) mg/dL Calcium 8.9 (8.4-10.2) mg/dL Disposition Clinical Impression: Diarrhea, Hemorrhoids Disposition: HOME SELF-CARE Condition: Good Instructions (If sedation given, give patient instructions): Hemorrhoids (ED), Rectal Bleeding (ED), Acute Diarrhea (ED) Additional Instructions: Avoid any laxatives until your stool becomes formed. Increase her fluid intake. Use Preparation H or witch sekou pads for hemorrhoid pain . Follow-up with the primary care doctor this week. Return to the emergency room with any new or concerning symptoms. Is patient prescribed a controlled substance at d/c from ED?: No Referrals: Christian Potter DO [Primary Care Provider] - 1-2 days Time of Disposition: 14:06
--- NOTE | 2022-11-01 13:13 | XR ---
EXAMINATION TYPE: XR KUB DATE OF EXAM: 11/01/2022 COMPARISON: None INDICATION: Pain TECHNIQUE: Single view abdomen upright view FINDINGS: There may be a couple of air-fluid levels within the ascending colon region. Nonspecific bowel gas is present. Some minimal descending colonic bowel gas present. No mass effect is evident. Psoas margins are normal. No organomegaly is present. IMPRESSION: 1. Nonspecific abdomen.
[2022-11-01 13:33] LABS: Basophils % (A) 0 %; Eosinophils # (A) 0.1 k/uL (0-0.7); Eosinophils % (A) 1 %; HCT 36.5 % (39.0-53.0); HGB 12.3 gm/dL (13.0-17.5); Lymphocytes % (A) 17 %; MCH 30.5 pg (25.0-35.0); MCHC 33.8 g/dL (31.0-37.0); Mean Platelet Volume 8.1; Monocytes % (A) 9 %; Neutrophils # (A) 8.4 k/uL (1.3-7.7); Neutrophils % (A) 71 %; Platelet Count 310 k/uL (150-450); RBC 4.05 m/uL (4.30-5.90); RDW 14.6 % (11.5-15.5); WBC 11.9 k/uL (3.8-10.6)
[2022-11-01 13:41] LABS: Calcium 8.9 mg/dL (8.4-10.2); Potassium 4.9 mmol/L (3.5-5.1)
[2022-11-01 13:44] LABS: Prothrombin Time 10.8 sec (9.0-12.0)
[2022-11-01] MEDS ORDERED: DIPHENOX-ATROP 2.5-0.025 MG 1 EACH TAB PO STA (14:05)
[2022-11-01 14:48] VITALS: BP 117/60; PULSE 70; RESP 18; TEMP 97.6
== END 2022-11-01 14:46 | disposition home or self-care (01) ==
LOC: EC 10:55
DX: R19.7 Diarrhea, unspecified (principal); K64.9 Unspecified hemorrhoids; I10 Essential (primary) hypertension; I48.91 Unspecified atrial fibrillation; E11.9 Type 2 diabetes mellitus without complications; K21.9 Gastro-esophageal reflux disease without esophagitis; E78.5 Hyperlipidemia, unspecified; M19.90 Unspecified osteoarthritis, unspecified site; Z87.891 Personal history of nicotine dependence; Z79.899 Other long term (current) drug therapy; Z88.0 Allergy status to penicillin; Z88.1 Allergy status to other antibiotic agents
CPT/HCPCS: 36415; 74018; 80048; 85025; 85610; 99284

== ENCOUNTER 2023-05-26 19:40 | Emergency (ER) | payer MEDICARE ==
[2023-05-26 19:58] VITALS: TEMP 98.5
--- NOTE | 2023-05-26 22:01 | XR ---
EXAMINATION TYPE: XR KUB DATE OF EXAM: 05/26/2023 Comparison: 11/01/2022 Clinical History: 82-year-old male with pain, r/o obstruction Findings: Lung bases are clear. No evidence for free intraperitoneal air. Cholecystectomy clips. A few small left-sided mid abdominal calcifications measuring up to 4 mm. Pelvic phleboliths. Coils within the pelvis from prior mesh repair. Small air-fluid levels within the right side of the colon. Minimal scattered stool. No dilated small bowel or differential air-fluid levels. Impression: 1. No evidence for free air or bowel obstruction. 2. Air-fluid levels throughout the right side of the colon suggesting liquid stool. Correlate for ent eritis or ileus. 3. Possible small nonobstructive left renal calculi measuring up to 4 mm.
[2023-05-26] MEDS ORDERED: LACTULOSE 20 GM/30 ML CUP PO ONE ×2 (22:13→23:14)
--- NOTE | 2023-05-26 22:19 | ED ---
General Adult HPI - General Chief complaint: Recheck/Abnormal Lab/Rx Stated complaint: Rectal bleeding Time Seen by Provider: 05/26/23 20:42 Source: patient Mode of arrival: ambulatory Limitations: no limitations - History of Present Illness Initial comments: 82-year-old male presents to ED with a chief complaint of constipation. She states has recurrent issues with constipation and notes despite taking MiraLAX has been unable to have a bowel movement for the last 4 days. Denies abdominal pain. Denies nausea or vomiting. He is still passing gas. No other complaints. - Related Data Home Medications Medication Instructions Recorded Confirmed Ranitidine HCl [Zantac] 150 mg PO DAILY PRN 04/09/19 07/03/19 Simvastatin [Zocor] 40 mg PO HS 04/09/19 07/03/19 lisinopriL [Zestril] 20 mg PO BID 07/03/19 07/03/19 Previous Rx's Medication Instructions Recorded Apixaban [Eliquis] 5 mg PO BID #60 tab 05/06/19 Metoprolol Succinate (ER) [Toprol 50 mg PO DAILY #30 tab 05/06/19 XL] Nitrofurantoin Monohyd/M-Cryst 100 mg PO Q12HR #14 cap 07/21/22 [Macrobid] Allergies Allergy/AdvReac Type Severity Reaction Status Date / Time Penicillins Allergy Rash/Hives Verified 05/26/23 19:58 montelukast [From Singulair] AdvReac Hallucinati Verified 05/26/23 19:58 ons Review of Systems ROS Statement: Those systems with pertinent positive or pertinent negative responses have been documented in the HPI. ROS Other: All systems not noted in ROS Statement are negative. Past Medical History Past Medical History: Atrial Fibrillation, Cancer, Diabetes Mellitus, GERD/Reflux, Hyperlipidemia, Hypertension, Osteoarthritis (OA) Additional Past Medical History / Comment(s): Pt recently admitted to [facility] on with afib/CHF. Other hx: Chronic otitis media, athritis bilateral hands. Bladder cancer History of Any Multi-Drug Resistant Organisms: None Reported Past Surgical History: Cholecystectomy, Hernia Repair, Orthopedic Surgery Additional Past Surgical History / Comment(s): Left elbow bones chips removed, bilateral inguinal hernia repairs with mesh, colonoscopy with benign polypectomy. Past Anesthesia/Blood Transfusion Reactions: No Reported Reaction Past Psychological History: No Psychological Hx Reported Smoking Status: Former smoker Past Alcohol Use History: None Reported Past Drug Use History: None Reported - Past Family History Father Family Medical History: Congestive Heart Failure (CHF) Additional Family Medical History / Comment(s): Father had cardiac valve disease. Mother Family Medical History: Cancer Additional Family Medical History / Comment(s): Mother had "female" cancer. General Exam Limitations: language barrier (Hard of hearing) General appearance: alert, in no apparent distress ENT exam: Present: normal exam Respiratory exam: Present: normal lung sounds bilaterally Cardiovascular Exam: Present: regular rate, normal rhythm GI/Abdominal exam: Present: soft (No tenderness to palpation. No rebound guarding or rigidity. Bowel sounds active.) Neurological exam: Present: alert, oriented X3 Psychiatric exam: Present: normal affect, normal mood Course Vital Signs 05/26/23 05/26/23 05/26/23 19:55 20:51 21:00 Temperature 98.5 F Pulse Rate 68 68 86 Respiratory 18 20 20 Rate Blood Pressure 109/49 201/89 198/98 O2 Sat by Pulse 95 98 98 Oximetry 05/26/23 22:00 Temperature Pulse Rate 70 Respiratory 16 Rate Blood Pressure 188/98 O2 Sat by Pulse 98 Oximetry Medical Decision Making - Medical Decision Making Was pt. sent in by a medical professional or institution (, PA, RELIABILITY TECHNICIAN, urgent care, hospital, or half-way...) When possible be specific @ -No Did you speak to anyone other than the patient for history (EMS, parent, family, police, friend...)? What history was obtained from this source @ -No Did you review nursing and triage notes (agree or disagree)? Why? @ -I reviewed and agree with nursing and triage notes Were old charts reviewed (outside hosp., previous admission, EMS record, old EKG, old radiological studies, urgent care reports/EKG's, half-way records)? Report findings @ -No old charts were reviewed Differential Diagnosis (chest pain, altered mental status, abdominal pain women, abdominal pain men, vaginal bleeding, weakness, fever, dyspnea, syncope, headache, dizziness, GI bleed, back pain, seizure, CVA, palpatations, mental health, musculoskeletal)? @ -Differential Abdominal Pain Men: Appendicitis, cholecystitis, diverticulosis, ischemic bowel, pancreatitis, hepatitis, UTI, gastroenteritis, AAA, incarcerated hernia, bowel obstruction, constipation, inflammatory bowel, hepatitis, peptic ulcer disease, splenic infarction, perforated viscus, testicular torsion, this is not meant to be an all-inclusive list EKG interpreted by me (3pts min.). @ -None X-rays interpreted by me (1pt min.). @ -Chest x-ray showed no evidence of obstruction CT interpreted by me (1pt min.). @ -None done U/S interpreted by me (1pt. min.). @ -None done What testing was considered but not performed or refused? (CT, X-rays, U/S, labs)? Why? @ -None What meds were considered but not given or refused? Why? @ -None Did you discuss the management of the patient with other professionals (professionals i.e. , PA, RELIABILITY TECHNICIAN, lab, RT, psych nurse, public health social worker, roof tile layer, teacher, ship's officer, case technician)? Give summary @ -No Was smoking cessation discussed for >3mins.? @ -No Was critical care preformed (if so, how long)? @ -No Were there social determinants of health that impacted care today? How? ([place] elessness, low income, unemployed, alcoholism, drug addiction, transportation, low edu. Level, literacy, decrease access to med. care, alf, rehab)? @ -No Was there de-escalation of care discussed even if they declined (Discuss DNR or withdrawal of care, Hospice)? DNR status @ -No What co-morbidities impacted this encounter? (DM, HTN, Smoking, COPD, CAD, Cancer, CVA, ARF, Chemo, Hep., AIDS, mental health diagnosis, sleep apnea, morbid obesity)? @ -None Was patient admitted / discharged? Hospital course, mention meds given and route, prescriptions, significant lab abnormalities, going to OR and other pertinent info. @ -Discharge. X-ray showed no evidence of obstruction. Basic laboratory studies unremarkable. Patient provided a dose of lactulose here however unable to have a bowel movement. Patient will be provided lactulose at discharge with an enema to use at home. Discussed return precautions with patient and family who verbalizes agreement. Undiagnosed new problem with uncertain prognosis? @ -No Drug Therapy requiring intensive monitoring for toxicity (Heparin, Nitro, Insulin, Cardizem)? @ -No Were any procedures done? @ -No Diagnosis/symptom? @ -Constipation Acute, or Chronic, or Acute on Chronic? @ -Acute on chronic Uncomplicated (without systemic symptoms) or Complicated (systemic symptoms)? @ -Uncomplicated Side effects of treatment? @ -No Exacerbation, Progression, or Severe Exacerbation? @ -No Poses a threat to life or bodily function? How? (Chest pain, [place], [place], pneumonia, PE, COPD, DKA, ARF, appy, cholecystitis, CVA, Diverticulitis, Homicidal, Suicidal, threat to staff... and all critical care pts) @ -No - Lab Data Result diagrams: 05/26/23 21:20 05/26/23 21:20 Lab Results 05/26/23 05/26/23 Range/Units 21:20 21:20 WBC 9.0 (3.8-10.6) k/uL RBC 4.24 L (4.30-5.90) m/uL Hgb 12.5 L (13.0-17.5) gm/dL Hct 37.4 L (39.0-53.0) % MCV 88.1 (80.0-100.0) fL MCH 29.5 (25.0-35.0) pg MCHC 33.5 (31.0-37.0) g/dL RDW 14.5 (11.5-15.5) % Plt Count 235 (150-450) k/uL MPV 8.1 Neutrophils % 63 % Lymphocytes % 23 % Monocytes % 10 % Eosinophils % 2 % Basophils % 0 % Neutrophils # 5.7 (1.3-7.7) k/uL Lymphocytes # 2.1 (1.0-4.8) k/uL Monocytes # 0.9 (0-1.0) k/uL Eosinophils # 0.2 (0-0.7) k/uL Basophils # 0.0 (0-0.2) k/uL Sodium 137 (137-145) mmol/L Potassium 4.6 (3.5-5.1) mmol/L Chloride 102 (98-107) mmol/L Carbon Dioxide 27 (22-30) mmol/L Anion Gap 8 mmol/L BUN 21 H (9-20) mg/dL Creatinine 1.27 H (0.66-1.25) mg/dL Est GFR (CKD-EPI)AfAm 61 (>60 ml/min/1.73 sqM) Est GFR (CKD-EPI)NonAf 53 (>60 ml/min/1.73 sqM) Glucose 95 (74-99) mg/dL Calcium 9.1 (8.4-10.2) mg/dL Total Bilirubin 2.0 H (0.2-1.3) mg/dL AST 23 (17-59) U/L ALT 26 (4-49) U/L Alkaline Phosphatase 73 (38-126) U/L Total Protein 6.7 (6.3-8.2) g/dL Albumin 3.9 (3.5-5.0) g/dL Disposition Clinical Impression: Constipation Disposition: HOME SELF-CARE Condition: Good Instructions (If sedation given, give patient instructions): Constipation (ED) Additional Instructions: Please return to the Emergency Department if symptoms worsen or any other concerns. Is patient prescribed a controlled substance at d/c from ED?: No Referrals: Debbie Julian DO [Primary Care Provider] - 1-2 days Time of Disposition: 23:00
[2023-05-26 22:59] LABS: Basophils % (A) 0 %; Eosinophils # (A) 0.2 k/uL (0-0.7); Eosinophils % (A) 2 %; HCT 37.4 % (39.0-53.0); HGB 12.5 gm/dL (13.0-17.5); Lymphocytes # (A) 2.1 k/uL (1.0-4.8); Lymphocytes % (A) 23 %; MCH 29.5 pg (25.0-35.0); MCHC 33.5 g/dL (31.0-37.0); MCV 88.1 fL (80.0-100.0); Mean Platelet Volume 8.1; Monocytes # (A) 0.9 k/uL (0-1.0); Monocytes % (A) 10 %; Neutrophils # (A) 5.7 k/uL (1.3-7.7); Neutrophils % (A) 63 %; Platelet Count 235 k/uL (150-450); RBC 4.24 m/uL (4.30-5.90); RDW 14.5 % (11.5-15.5)
[2023-05-26 23:03] LABS: ALT 26 U/L (4-49); AST 23 U/L (17-59); African American GFR (CKD) 61 (>60 ml/min/1.73 sqM); Albumin 3.9 g/dL (3.5-5.0); Alkaline Phosphatase 73 U/L (38-126); Anion Gap 8 mmol/L; Blood Urea Nitrogen 21 mg/dL (9-20); Calcium 9.1 mg/dL (8.4-10.2); Carbon Dioxide 27 mmol/L (22-30); Chloride 102 mmol/L (98-107); Glucose 95 mg/dL (74-99); Non-African American GFR(CKD) 53 (>60 ml/min/1.73 sqM); Potassium 4.6 mmol/L (3.5-5.1); Sodium 137 mmol/L (137-145); Total Protein 6.7 g/dL (6.3-8.2)
[2023-05-26] MEDS ORDERED: NA PHOS,M-B/NA PHOS,DI-BA 133 ML ENEMA RECTAL STA (23:42)
[2023-05-26 23:59] VITALS: BP 104/51; PULSE 64; RESP 18
== END 2023-05-26 23:59 | disposition home or self-care (01) ==
LOC: EC 19:40
DX: K59.00 Constipation, unspecified (principal); E11.9 Type 2 diabetes mellitus without complications; E78.5 Hyperlipidemia, unspecified; I11.0 Hypertensive heart disease with heart failure; I48.91 Unspecified atrial fibrillation; I50.9 Heart failure, unspecified; Z79.899 Other long term (current) drug therapy; Z88.0 Allergy status to penicillin; Z88.8 Allergy status to other drugs, medicaments and biological substances; Z87.891 Personal history of nicotine dependence; Z90.49 Acquired absence of other specified parts of digestive tract
CPT/HCPCS: 36415; 74018; 80053; 85025; 99284

== ENCOUNTER 2024-01-23 08:58 | Day surgery (SDC) | payer MEDICARE ==
[2024-01-17 12:53] VITALS: BMI 34.5
[2024-01-23] MEDS ORDERED: LIDOCAINE 1% (10MG/ML) FOR IV START INTRADERMA PRN (09:26)
[2024-01-23] MEDS ORDERED: LACTATED RINGERS 1,000 ML IV SCH (09:26)
[2024-01-23] MEDS ORDERED: droPERidol 5 MG/2 ML VIAL IVP ONE (09:26)
[2024-01-23] MEDS ORDERED: HYDROmorphone 0.5 MG/0.5 ML SYRINGE IVP PRN (09:26)
[2024-01-23] MEDS: LACTATED RINGERS 1,000 ML IV ONE ×2 (09:41→12:55)
[2024-01-23] MEDS: DEXAMETHASONE SOD PHOSPHATE 4 MG/ML 1 ML VIAL IV ONE (09:55)
[2024-01-23] MEDS: FAMOTIDINE 20 MG/2 ML VIAL IV PRN (09:55)
[2024-01-23] MEDS: ONDANSETRON 4 MG/2 ML VIAL IVP ONE (09:55)
[2024-01-23 10:00] VITALS: RESP 16
[2024-01-23 10:01] LABS: HGB 12.2 gm/dL (13.0-17.5); MCH 30.7 pg (25.0-35.0); MCHC 34.9 g/dL (31.0-37.0); MCV 88.1 fL (80.0-100.0); Mean Platelet Volume 8.1; Platelet Count 227 k/uL (150-450); RBC 3.97 m/uL (4.30-5.90); RDW 13.8 % (11.5-15.5); WBC 8.2 k/uL (3.8-10.6)
[2024-01-23 10:09] LABS: African American GFR (CKD) 67 (>60 ml/min/1.73 sqM); Anion Gap 10 mmol/L; Blood Urea Nitrogen 21 mg/dL (9-20); Carbon Dioxide 21 mmol/L (22-30); Chloride 109 mmol/L (98-107); Glucose 113 mg/dL (74-99); Non-African American GFR(CKD) 58 (>60 ml/min/1.73 sqM); Potassium 4.6 mmol/L (3.5-5.1); Sodium 140 mmol/L (137-145)
[2024-01-23] MEDS ORDERED: WATER FOR INJECTION, STERILE 10 ML VIAL IV ONE (10:48)
[2024-01-23] MEDS ORDERED: NEOSTIGMINE 1 MG/ML 10 ML VIAL ONE (10:48)
[2024-01-23] MEDS: CLINDAMYCIN 600 MG in DEXTROSE 5% IN WATER 50 ML IVPB PRN (10:48)
[2024-01-23] MEDS ORDERED: fentaNYL (PF) 50 MCG/ML 2 ML AMP ONE (10:48)
[2024-01-23] MEDS ORDERED: MIDAZOLAM 2 MG/2 ML VIAL ONE (10:48)
[2024-01-23] MEDS ORDERED: PHENYLEPHRINE-0.9% NACL SYG 1,000 MCG/10 ML SYRINGE ONE (10:48)
[2024-01-23] MEDS ORDERED: GLYCOPYRROLATE 0.2 MG/ML 2 ML VIAL ONE (10:48)
[2024-01-23] MEDS ORDERED: ROCURONIUM 10 MG/ML (5 ML VIAL) IV ONE (10:48)
[2024-01-23] MEDS ORDERED: PROPOFOL 10 MG/ML 20 ML VIAL IV ONE (10:48)
[2024-01-23] MEDS ORDERED: ePHEDrine 50 MG/ML 1 ML VIAL ONE (10:48)
[2024-01-23] MEDS ORDERED: SUCCINYLCHOLINE CHLORIDE 200 MG/10 ML VIAL IV ONE (10:48)
[2024-01-23] MEDS ORDERED: LIDOCAINE 1% INJ 10MG/ML (20 ML MDV) ONE (10:48)
[2024-01-23] MEDS: LIDOCAINE 1%-EPI 1:100,000 20 ML VIAL SQ ONE ×2 (11:03)
--- NOTE | 2024-01-23 12:29 | P.OP ---
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 He had biopsy as outpatient showed squamous cell carcinoma Operative Findings: Large exophytic skin lesion erythematous irregular and necrotic right lateral ear extending down to the cartilage grossly but not through this layer Description of Procedure: Patient brought operative suite and placed in a supine position. Patient underwent induction of general anesthesia with oral endotracheal. Patient was prepped and draped fashion. 1% lidocaine with 1-100,000 epinephrine was infused subcutaneously and field block fashion at the surgical site right ear as well as the right supraclavicular area for potential skin graft reconstruction. This was left to work for 7 minutes for vasoconstrictive effect. The right ear skin lesion was then excised grossly entirely including the underlying cartilage. The medial auricular skin was left intact. Hemostasis was gained with electrocautery. An elliptical incision was then fashioned in the right supraclavicular area for skin graft harvesting. This was a full-thickness skin graft harvested. The graft was defatted the wound was undermined in all directions hemostasis gained with electrocautery and the wound was closed with subcutaneous layer with inverted interrupted 5-0 Vicryl suture skin closed with running locking 5-0 Prolene suture bacitracin ointment sterile dressing were placed. The skin graft was then placed at the right ear defect and was sutured circumferentially with simple interrupted 5-0 Vicryl sutures left long. This was then covered with bolster dressing performed from [employer] covering cotton balls impregnated with bacitracin ointment. This was tied down to the underlying graft. Excellent hemostasis was noted. The patient was then allowed to emerge from general anesthesia having tolerated procedure well was extubated in the operating suite and transferred to postop recovery area in satisfactory condition.
[2024-01-23 12:51] VITALS: TEMP 98
[2024-01-23 13:59] VITALS: BP 144/70; PULSE 69
== END 2024-01-23 13:46 | disposition home or self-care (01) ==
LOC: OR 08:58
PROVIDERS: ATTEND Otolaryngology
DX: C44.222 Squamous cell carcinoma of skin of right ear and external auricular canal (principal); I10 Essential (primary) hypertension; E66.9 Obesity, unspecified; Z68.30 Body mass index [BMI] 30.0-30.9, adult; Z88.0 Allergy status to penicillin; I48.91 Unspecified atrial fibrillation; E78.5 Hyperlipidemia, unspecified; I25.10 Atherosclerotic heart disease of native coronary artery without angina pectoris; K21.9 Gastro-esophageal reflux disease without esophagitis; Z87.891 Personal history of nicotine dependence; Z79.01 Long term (current) use of anticoagulants; Z98.890 Other specified postprocedural states; Z79.899 Other long term (current) drug therapy
CPT/HCPCS: 11644; 15260; 88305; 80048; 85027; J2250; J0330; J1100; J2710; J2405; J2001; J3010; J3490; J2704; J2371; J0736

== ENCOUNTER 2024-01-26 10:24 | Emergency (ER) | payer MEDICARE ==
[2024-01-26 11:30] VITALS: RESP 18; TEMP 98
--- NOTE | 2024-01-26 11:30 | ED ---
General Adult HPI - General Chief complaint: Skin/Abscess/Foreign Body Stated complaint: Post Op Comp, Ear Surgery on 01/22 Time Seen by Provider: 01/26/24 10:35 Source: patient, RN notes reviewed Mode of arrival: ambulatory Limitations: no limitations - History of Present Illness Initial comments: 83-year-old male presents emergency department with chief complaint of right ear wound recheck. Patient states that he had cancer removed and skin graft performed by Dr. Koroma. Patient states that they feel there is more swelling along the edge of the ear there is been no purulent drainage he states it does throb and feel warm at times. Patient also states that he is currently on doxycycline. Patient also complains of urinary frequency which he states he has bladder cancer and is undergoing current treatment. He denies fevers or chills no flank pain - Related Data Home Medications Medication Instructions Recorded Confirmed Ranitidine HCl [Zantac] 150 mg PO DAILY PRN 04/09/19 01/23/24 Simvastatin [Zocor] 40 mg PO HS 04/09/19 01/23/24 lisinopriL [Zestril] 20 mg PO BID 07/03/19 01/23/24 Cyanocobalamin (Vitamin B-12) 1,000 mcg PO QAM 01/17/24 01/23/24 [Vitamin B-12] Metoprolol Succinate (ER) [Toprol 50 mg PO QAM 01/17/24 01/23/24 XL] Previous Rx's Medication Instructions Recorded Apixaban [Eliquis] 5 mg PO BID #60 tab 05/06/19 Cephalexin [Keflex] 500 mg PO Q8HR #15 cap 01/26/24 Allergies Allergy/AdvReac Type Severity Reaction Status Date / Time Penicillins Allergy Rash/Hives Verified 01/26/24 10:31 montelukast [From Singulair] AdvReac Hallucinati Verified 01/26/24 10:31 ons Review of Systems ROS Statement: Those systems with pertinent positive or pertinent negative responses have been documented in the HPI. ROS Other: All systems not noted in ROS Statement are negative. Past Medical History Past Medical History: Atrial Fibrillation, Cancer, Heart Failure, GERD/Reflux, Hyperlipidemia, Hypertension, Osteoarthritis (OA) Additional Past Medical History / Comment(s): Recent skin cancer,on ear, dx Nov 2023. Other hx: Chronic otitis media, athritis bilateral hands. Bladder cancer 2022-"had bladder washings" History of Any Multi-Drug Resistant Organisms: None Reported Past Surgical History: Cholecystectomy, Hernia Repair, Orthopedic Surgery Additional Past Surgical History / Comment(s): Left elbow bones chips removed, bilateral inguinal hernia repairs with mesh, colonoscopy with benign polypectomy. Past Anesthesia/Blood Transfusion Reactions: No Reported Reaction Past Psychological History: No Psychological Hx Reported Smoking Status: Former smoker - Past Family History Father Family Medical History: Congestive Heart Failure (CHF) Additional Family Medical History / Comment(s): Father had cardiac valve disease . Mother Family Medical History: Cancer Additional Family Medical History / Comment(s): Mother had "female" cancer. General Exam Limitations: no limitations General appearance: alert, in no apparent distress Head exam: Present: atraumatic, normocephalic, normal inspection ENT exam: Present: normal oropharynx, mucous membranes moist. Absent: normal exam, normal external ear exam (There is moderate erythema and swelling along ear with gauze noted and sutures in place there is no purulent drainage there is no mastoid tenderness there is no preauricular tenderness) Neck exam: Present: normal inspection. Absent: tenderness, meningismus, lymphadenopathy Respiratory exam: Present: normal lung sounds bilaterally. Absent: respiratory distress, wheezes, rales, rhonchi, stridor Cardiovascular Exam: Present: regular rate, normal rhythm, normal heart sounds. Absent: systolic murmur, diastolic murmur, rubs, gallop, clicks GI/Abdominal exam: Present: soft, tenderness (Suprapubic), normal bowel sounds. Absent: distended, guarding, rebound, rigid Course Vital Signs 01/26/24 01/26/24 10:28 12:30 Temperature 98 F Pulse Rate 68 65 Respiratory 18 18 Rate Blood Pressure 152/67 152/58 O2 Sat by Pulse 96 96 Oximetry Medical Decision Making - Medical Decision Making Was pt. sent in by a medical professional or institution (, PA, FIRESTOPPER TECHNICIAN, urgent care, hospital, or long-term...) When possible be specific @ -No Did you speak to anyone other than the patient for history (EMS, parent, family, police, friend...)? What history was obtained from this source @ -No Did you review nursing and triage notes (agree or disagree)? Why? @ -I reviewed and agree with nursing and triage notes Were old charts reviewed (outside hosp., previous admission, EMS record, old EKG, old radiological studies, urgent care reports/EKG's, long-term records)? Report findings @ -No old charts were reviewed Differential Diagnosis (chest pain, altered mental status, abdominal pain women, abdominal pain men, vaginal bleeding, weakness, fever, dyspnea, syncope, headache, dizziness, GI bleed, back pain, seizure, CVA, palpatations, mental health, musculoskeletal)? @ -Postop wound check, UTI, urinary retention EKG interpreted by me (3pts min.). @ -None X-rays interpreted by me (1pt min.). @ -None done CT interpreted by me (1pt min.). @ -None done U/S interpreted by me (1pt. min.). @ -None done What testing was considered but not performed or refused? (CT, X-rays, U/S, labs)? Why? @ -None What meds were considered but not given or refused? Why? @ -None Did you discuss the management of the patient with other professionals (professionals i.e. , PA, FIRESTOPPER TECHNICIAN, lab, RT, psych nurse, family welfare social work professor, bottom steep tender, teacher, security officer, manager case)? Give summary @ -No Was smoking cessation discussed for >3mins.? @ -No Was critical care preformed (if so, how long)? @ -No Were there social determinants of health that impacted care today? How? (Homelessness, low income, unemployed, alcoholism, drug addiction, transportatio n, low edu. Level, literacy, decrease access to med. care, longterm, rehab)? @ -No Was there de-escalation of care discussed even if they declined (Discuss DNR or withdrawal of care, Hospice)? DNR status @ -No What co-morbidities impacted this encounter? (DM, HTN, Smoking, COPD, CAD, Cancer, CVA, ARF, Chemo, Hep., AIDS, mental health diagnosis, sleep apnea, morbid obesity)? @ -None Was patient admitted / discharged? Hospital course, mention meds given and route, prescriptions, significant lab abnormalities, going to OR and other pertinent info. @ -Did charge patient is found to have urinary retention patient had Drummond catheter placed no evidence of UTI. Patient will follow-up with his urologist this is probably related to his current bladder cancer treatments. Patient also had wound recheck of his right ear patient will be placed on Keflex for possible early infection though appears to be mostly postinflammatory Undiagnosed new problem with uncertain prognosis? @ -No Drug Therapy requiring intensive monitoring for toxicity (Heparin, Nitro, Insulin, Cardizem)? @ -No Were any procedures done? @ -No Diagnosis/symptom? @ -Wound recheck, urinary retention Acute, or Chronic, or Acute on Chronic? @ -Acute Uncomplicated (without systemic symptoms) or Complicated (systemic symptoms)? @ -Uncomplicated Side effects of treatment? @ -No Exacerbation, Progression, or Severe Exacerbation? @ -No Poses a threat to life or bodily function? How? (Chest pain, [place], [place], pneumonia, PE, COPD, DKA, ARF, appy, cholecystitis, CVA, Diverticulitis, Homicidal, Suicidal, threat to staff... and all critical care pts) @ -No - Lab Data Result diagrams: 01/26/24 10:50 01/26/24 10:50 Lab Results 01/26/24 01/26/24 01/26/24 Range/Units 10:50 10:50 10:50 WBC 9.1 (3.8-10.6) k/uL RBC 4.17 L (4.30-5.90) m/uL Hgb 12.3 L (13.0-17.5) gm/dL Hct 37.0 L (39.0-53.0) % MCV 88.6 (80.0-100.0) fL MCH 29.5 (25.0-35.0) pg MCHC 33.3 (31.0-37.0) g/dL RDW 13.8 (11.5-15.5) % Plt Count 265 (150-450) k/uL MPV 8.1 Neutrophils % 69 % Lymphocytes % 19 % Monocytes % 9 % Eosinophils % 2 % Basophils % 0 % Neutrophils # 6.3 (1.3-7.7) k/uL Lymphocytes # 1.7 (1.0-4.8) k/uL Monocytes # 0.8 (0-1.0) k/uL Eosinophils # 0.1 (0-0.7) k/uL Basophils # 0.0 (0-0.2) k/uL Sodium 138 (137-145) mmol/L Potassium 4.3 (3.5-5.1) mmol/L Chloride 107 (98-107) mmol/L Carbon Dioxide 22 (22-30) mmol/L Anion Gap 9 mmol/L BUN 27 H (9-20) mg/dL Creatinine 1.29 H (0.66-1.25) mg/dL Est GFR (CKD-EPI)AfAm 59 (>60 ml/min/1.73 sqM) Est GFR (CKD-EPI)NonAf 51 (>60 ml/min/1.73 sqM) Glucose 121 H (74-99) mg/dL Calcium 9.2 (8.4-10.2) mg/dL Total Bilirubin 1.7 H (0.2-1.3) mg/dL AST 34 (17-59) U/L ALT 30 (4-49) U/L Alkaline Phosphatase 74 (38-126) U/L Total Protein 6.1 L (6.3-8.2) g/dL Albumin 3.7 (3.5-5.0) g/dL Urine Color Light Yellow Urine Appearance Clear (Clear) Urine pH 5.5 (5.0-8.0) Ur Specific [place] 1.015 (1.001-1.035) Urine Protein Trace H (Negative) Urine Glucose (UA) Negative (Negative) Urine Ketones Negative (Negative) Urine Blood Moderate H (Negative) Urine Nitrite Negative (Negative) Urine Bilirubin Negative (Negative) Urine Urobilinogen <2.0 (<2.0) mg/dL Ur Leukocyte Esterase Small H (Negative) Urine RBC 120 H (0-5) /hpf Urine WBC 18 H (0-5) /hpf Ur Squamous Epith Cells <1 (0-4) /hpf Urine Mucus Rare H (None) /hpf Disposition Clinical Impression: Urinary retention, Encounter for wound re-check Disposition: HOME SELF-CARE Condition: Stable Instructions (If sedation given, give patient instructions): Urinary Retention in Men (ED) Additional Instructions: Please return to the Emergency Department if symptoms worsen or any other concerns. Prescriptions: Cephalexin [Keflex] 500 mg PO Q8HR #15 cap Is patient prescribed a controlled substance at d/c from ED?: No Referrals: Debbie Julian DO [Primary Care Provider] - 1-2 days Time of Disposition: 12:13
[2024-01-26 11:43] LABS: ALT 30 U/L (4-49); AST 34 U/L (17-59); African American GFR (CKD) 59 (>60 ml/min/1.73 sqM); Albumin 3.7 g/dL (3.5-5.0); Alkaline Phosphatase 74 U/L (38-126); Anion Gap 9 mmol/L; Basophils % (A) 0 %; Blood Urea Nitrogen 27 mg/dL (9-20); Calcium 9.2 mg/dL (8.4-10.2); Carbon Dioxide 22 mmol/L (22-30); Chloride 107 mmol/L (98-107); Eosinophils # (A) 0.1 k/uL (0-0.7); Eosinophils % (A) 2 %; Glucose 121 mg/dL (74-99); HGB 12.3 gm/dL (13.0-17.5); Lymphocytes # (A) 1.7 k/uL (1.0-4.8); Lymphocytes % (A) 19 %; MCH 29.5 pg (25.0-35.0); MCHC 33.3 g/dL (31.0-37.0); MCV 88.6 fL (80.0-100.0); Mean Platelet Volume 8.1; Monocytes # (A) 0.8 k/uL (0-1.0); Monocytes % (A) 9 %; Neutrophils # (A) 6.3 k/uL (1.3-7.7); Neutrophils % (A) 69 %; Non-African American GFR(CKD) 51 (>60 ml/min/1.73 sqM); Platelet Count 265 k/uL (150-450); Potassium 4.3 mmol/L (3.5-5.1); RBC 4.17 m/uL (4.30-5.90); RDW 13.8 % (11.5-15.5); Sodium 138 mmol/L (137-145); Total Bilirubin 1.7 mg/dL (0.2-1.3); Total Protein 6.1 g/dL (6.3-8.2); WBC 9.1 k/uL (3.8-10.6)
[2024-01-26 11:45] LABS: Appearance,Urine Clear (Clear); Bilirubin,Urine Negative (Negative); Blood,Urine Moderate (Negative); Color,Urine Light Yellow; Glucose,Urine (UA) Negative (Negative); Ketones,Urine Negative (Negative); Leukocyte Esterase,Urine Small (Negative); Mucus,Urine Rare /hpf; Nitrite,Urine Negative (Negative); PH, Urine 5.5 (5.0-8.0); Protein,Urine Trace (Negative); RBC,Urine 120 /hpf (0-5); Specific Gravity,Urine 1.015 (1.001-1.035); Squamous Epithelial Cell,Urine <1 /hpf (0-4); Urobilinogen,Urine <2.0 mg/dL (<2.0); WBC,Urine 18 /hpf (0-5)
[2024-01-26 12:36] VITALS: BP 152/58; PULSE 65
== END 2024-01-26 12:32 | disposition home or self-care (01) ==
LOC: EC 10:24
DX: Z48.01 Encounter for change or removal of surgical wound dressing (principal); N39.0 Urinary tract infection, site not specified; Z88.0 Allergy status to penicillin; Z88.8 Allergy status to other drugs, medicaments and biological substances; Z87.891 Personal history of nicotine dependence
CPT/HCPCS: 36415; 51702; 51798; 80053; 81001; 85025; 87086; 99283

== ENCOUNTER 2024-01-30 06:38 | Emergency (ER) | payer MEDICARE ==
[2024-01-30 07:06] VITALS: PULSE 65; RESP 18; TEMP 98
--- NOTE | 2024-01-30 07:25 | ED ---
General Adult HPI - General Chief complaint: Urogenital Stated complaint: constipation unable to urinate Time Seen by Provider: 01/30/24 06:55 Source: patient, family, RN notes reviewed, old records reviewed Mode of arrival: wheelchair Limitations: no limitations - History of Present Illness Initial comments: 83-year-old male presents emergency department chief complaint of unable to urinate. Patient had a Drummond catheter placed 4 days ago was seen at urology office yesterday had catheter removed. Patient states he did have cystoscopy in the office at that time. Patient states he has been unable to urinate since Drummond catheter removed. He states he has increasing pain, pressure states he is also constipated. Patient states he was told he needed further treatments of his bladder cancer. - Related Data Home Medications Medication Instructions Recorded Confirmed Ranitidine HCl [Zantac] 150 mg PO DAILY PRN 04/09/19 01/23/24 Simvastatin [Zocor] 40 mg PO HS 04/09/19 01/23/24 lisinopriL [Zestril] 20 mg PO BID 07/03/19 01/23/24 Cyanocobalamin (Vitamin B-12) 1,000 mcg PO QAM 01/17/24 01/23/24 [Vitamin B-12] Metoprolol Succinate (ER) [Toprol 50 mg PO QAM 01/17/24 01/23/24 XL] Previous Rx's Medication Instructions Recorded Apixaban [Eliquis] 5 mg PO BID #60 tab 05/06/19 Cephalexin [Keflex] 500 mg PO Q8HR #15 cap 01/26/24 Allergies Allergy/AdvReac Type Severity Reaction Status Date / Time Penicillins Allergy Rash/Hives Verified 01/30/24 06:52 montelukast [From Singulair] AdvReac Hallucinati Verified 01/30/24 06:52 ons Review of Systems ROS Statement: Those systems with pertinent positive or pertinent negative responses have been documented in the HPI. ROS Other: All systems not noted in ROS Statement are negative. Past Medical History Past Medical History: Atrial Fibrillation, Cancer, Heart Failure, GERD/Reflux, Hyperlipidemia, Hypertension, Osteoarthritis (OA) Additional Past Medical History / Comment(s): Recent skin cancer,on ear, dx Nov 2023. Other hx: Chronic otitis media, athritis bilateral hands. Bladder cancer 2023-"had bladder washings" History of Any Multi-Drug Resistant Organisms: None Reported Past Surgical History: Cholecystectomy, Hernia Repair, Orthopedic Surgery Additional Past Surgical History / Comment(s): Left elbow bones chips removed, bilateral inguinal hernia repairs with mesh, colonoscopy with benign polypectomy. Past Anesthesia/Blood Transfusion Reactions: No Reported Reaction Past Psychological History: No Psychological Hx Reported Smoking Status: Former smoker - Past Family History Father Family Medical History: Congestive Heart Failure (CHF) Additional Family Medical History / Comment(s): Father had cardiac valve disease. Mother Family Medical History: Cancer Additional Family Medical History / Comment(s): Mother had "female" cancer. General Exam Limitations: no limitations General appearance: alert, in no apparent distress Head exam: Present: atraumatic, normocephalic, normal inspection Respiratory exam: Present: normal lung sounds bilaterally. Absent: respiratory distress, wheezes, rales, rhonchi, stridor Cardiovascular Exam: Present: regular rate, normal rhythm, normal heart sounds. Absent: systolic murmur, diastolic murmur, rubs, gallop, clicks GI/Abdominal exam: Present: soft, distended, tenderness, normal bowel sounds. Absent: guarding, rebound, rigid Back exam: Absent: CVA tenderness (R), CVA tenderness (L) Course Vital Signs 01/30/24 01/30/24 06:50 10:32 Temperature 98 F Pulse Rate 65 65 Respiratory 18 18 Rate Blood Pressure 110/48 112/55 O2 Sat by Pulse 96 98 Oximetry Medical Decision Making - Medical Decision Making Was pt. sent in by a medical professional or institution (, PA, BROOM MAN, urgent care, hospital, or long term...) When possible be specific @ -No Did you speak to anyone other than the patient for history (EMS, parent, family, police, friend...)? What history was obtained from this source @ -No Did you review nursing and triage notes (agree or disagree)? Why? @ -I reviewed and agree with nursing and triage notes Were old charts reviewed (outside hosp., previous admission, EMS record, old EKG, old radiological studies, urgent care reports/EKG's, long term records)? Report findings @ -No old charts were reviewed Differential Diagnosis (chest pain, altered mental status, abdominal pain women, abdominal pain men, vaginal bleeding, weakness, fever, dyspnea, syncope, headache, dizziness, GI bleed, back pain, seizure, CVA, palpatations, mental health, musculoskeletal)? @ -Urinary retention, constipation, UTI EKG interpreted by me (3pts min.). @ -None X-rays interpreted by me (1pt min.). @ -X-ray shows mild constipation CT interpreted by me (1pt min.). @ -None done U/S interpreted by me (1pt. min.). @ -None done What testing was considered but not performed or refused? (CT, X-rays, U/S, labs)? Why? @ -None What meds were considered but not given or refused? Why? @ -None Did you discuss the management of the patient with other professionals (professionals i.e. , PA, BROOM MAN, lab, RT, psych nurse, social work associate, lapel padder blindstitch, teacher, navigation officer, registered nurse hh case manager)? Give summary @ -No Was smoking cessation discussed for >3mins.? @ -No Was critical care preformed (if so, how long)? @ -No Were there social determinants of health that impacted care today? How? (Homelessness, low income, unemployed, alcoholism, drug addiction, transportation, low edu. Level, literacy, decrease access to med. care, [place] [facility], rehab)? @ -No Was there de-escalation of care discussed even if they declined (Discuss DNR or withdrawal of care, Hospice)? DNR status @ -No What co-morbidities impacted this encounter? (DM, HTN, Smoking, COPD, CAD, Cancer, CVA, ARF, Chemo, Hep., AIDS, mental health diagnosis, sleep apnea, morbid obesity)? @ -[Bladder cancer Was patient admitted / discharged? Hospital course, mention meds given and route, prescriptions, significant lab abnormalities, going to OR and other pertinent info. @ -Discharge patient had Drummond catheter placed again 1 L of urine was removed. Drummond catheter was placed by RN. Patient did have enema which patient large raghu wel movement feels greatly improved to be discharged in stable condition. Undiagnosed new problem with uncertain prognosis? @ -No Drug Therapy requiring intensive monitoring for toxicity (Heparin, Nitro, Insulin, Cardizem)? @ -No Were any procedures done? @ -No Diagnosis/symptom? @ -Urinary retention, constipation Acute, or Chronic, or Acute on Chronic? @ -Acute Uncomplicated (without systemic symptoms) or Complicated (systemic symptoms)? @ -uncomplicated Side effects of treatment? @ -No Exacerbation, Progression, or Severe Exacerbation? @ -No Poses a threat to life or bodily function? How? (Chest pain, [place], [place], pneumonia, PE, COPD, DKA, ARF, appy, cholecystitis, CVA, Diverticulitis, Homicidal, Suicidal, threat to staff... and all critical care pts) @ -No Disposition Clinical Impression: Urinary retention, Constipation Disposition: HOME SELF-CARE Condition: Stable Instructions (If sedation given, give patient instructions): Drummond Catheter Placement and Care (ED) Additional Instructions: Please return to the Emergency Department if symptoms worsen or any other concerns. Is patient prescribed a controlled substance at d/c from ED?: No Referrals: Debbie Julian DO [Primary Care Provider] - 1-2 days Time of Disposition: 10:00
--- NOTE | 2024-01-30 07:45 | XR ---
EXAMINATION TYPE: XR KUB DATE OF EXAM: 01/30/2024 7:28 AM CLINICAL INDICATION:Male, 83 years old with history of Constipation; COMPARISON: 05/26/2023 TECHNIQUE: One radiographic view of the abdomen was obtained. FINDINGS: The bowel gas pattern is nonspecific without dilated loops of small or large bowel. There i s no evidence for organomegaly or pneumoperitoneum. The osseous structures are intact. No abnormal calcifications are present. Fecal material and gas are demonstrated throughout the colon and rectum. Right upper quadrant cholecystectomy clips. IMPRESSION: Nonspecific bowel gas pattern without radiographic evidence for acute process.
[2024-01-30 11:01] VITALS: BP 112/55
== END 2024-01-30 10:32 | disposition home or self-care (01) ==
LOC: EC 06:38
DX: K59.00 Constipation, unspecified (principal); R33.9 Retention of urine, unspecified; Z88.0 Allergy status to penicillin; Z88.1 Allergy status to other antibiotic agents; Z85.51 Personal history of malignant neoplasm of bladder; Z87.891 Personal history of nicotine dependence; Z90.49 Acquired absence of other specified parts of digestive tract
CPT/HCPCS: 51702; 51798; 74018; 99284

== ENCOUNTER 2024-08-01 16:03 | Emergency (ER) | payer MEDICARE ==
--- NOTE | 2024-08-01 16:29 | ED ---
Abdominal Pain HPI - General Chief Complaint: Abdominal Pain Stated Complaint: GI Issue Time Seen by Provider: 08/01/24 16:27 Source: patient, RN notes reviewed Mode of arrival: ambulatory Limitations: no limitations - History of Present Illness Initial Comments: 84-year-old male presenting with family for chief complaint of constipation x 5 days. States he not had a normal bowel movement 5 days. States he has lower abdominal cramping and the urge to pass a bowel movement, but has only passed small amounts of liquid stool. Tolerating orals well. Denies fevers, chills, vomiting. - Related Data Home Medications Medication Instructions Recorded Confirmed lisinopriL [Zestril] 20 mg PO BID 07/03/19 08/01/24 Atorvastatin [Lipitor] 20 mg PO DAILY 08/01/24 08/01/24 L.acidoph,Paracasei, B.lactis 1 cap PO DAILY 08/01/24 08/01/24 [Probiotic] Metoprolol Succinate [Metoprolol 25 mg PO DAILY 08/01/24 08/01/24 Succinate ER] Propafenone HCl 150 mg PO TID 08/01/24 08/01/24 amLODIPine [Norvasc] 5 mg PO DAILY 08/01/24 08/01/24 Previous Rx's Medication Instructions Recorded Apixaban [Eliquis] 5 mg PO BID #60 tab 05/06/19 Allergies Allergy/AdvReac Type Severity Reaction Status Date / Time Penicillins Allergy Rash/Hives Verified 08/01/24 18:07 montelukast [From Singulair] AdvReac Hallucinati Verified 08/01/24 18:07 ons Review of Systems ROS Statement: Those systems with pertinent positive or pertinent negative responses have been documented in the HPI. ROS Other: All systems not noted in ROS Statement are negative. Past Medical History Past Medical History: Atrial Fibrillation, Cancer, Heart Failure, GERD/Reflux, Hyperlipidemia, Hypertension, Osteoarthritis (OA) Additional Past Medical History / Comment(s): Recent skin cancer,on ear, dx Nov 2023. Other hx: Chronic otitis media, athritis bilateral hands. Bladder cancer 2022-"had bladder washings". bladder cancer. History of Any Multi-Drug Resistant Organisms: None Reported Past Surgical History: Cholecystectomy, Hernia Repair, Orthopedic Surgery Additional Past Surgical History / Comment(s): Left elbow bones chips removed, bilateral inguinal hernia repairs with mesh, colonoscopy with benign polypectomy. Past Anesthesia/Blood Transfusion Reactions: No Reported Reaction Past Psychological History: No Psychological Hx Reported Smoking Status: Former smoker Past Alcohol Use History: None Reported Past Drug Use History: None Reported - Past Family History Father Family Medical History: Congestive Heart Failure (CHF) Additional Family Medical History / Comment(s): Father had cardiac valve disease. Mother Family Medical History: Cancer Additional Family Medical History / Comment(s): Mother had "female" cancer. General Exam - General Exam Comments Initial Comments: Visual Physical Exam Vital signs reviewed General: Well-appearing, nontoxic, no acute distress. Head: Normocephalic, atraumatic Eyes: PERRLA, EOMI ENT: Airway patent Chest: Nonlabored breathing Skin: No visual rash, normal skin tone Neuro: Alert and oriented 3 Musculoskeletal: No gross abnormalities Limitations: no limitations General appearance: alert, in no apparent distress Respiratory exam: Present: normal lung sounds bilaterally. Absent: respiratory distress, wheezes, rales, rhonchi, stridor Cardiovascular Exam: Present: regular rate, normal rhythm, normal heart sounds. Absent: systolic murmur, diastolic murmur, rubs, gallop, clicks GI/Abdominal exam: Present: soft, normal bowel sounds. Absent: distended, tenderness, guarding, rebound, rigid Back exam: Present: normal inspection. Absent: CVA tenderness (R), CVA tenderness (L) Neurological exam: Present: alert, oriented X3 Psychiatric exam: Present: normal affect, normal mood Skin exam: Present: warm, dry, intact, normal color. Absent: rash Course Vital Signs 08/01/24 08/01/24 16:11 19:24 Temperature 98.1 F 98.2 F Pulse Rate 66 45 L Respiratory 15 18 Rate Blood Pressure 103/52 101/53 O2 Sat by Pulse 97 91 L Oximetry Medical Decision Making - Medical Decision Making I completed the quick note portion of this chart signed Cassidy Levine PA-C Was pt. sent in by a medical professional or institution (SUSHMA Eller, CLASSIFIED COPY CONTROL CLERK, urgent care, hospital, or halfway...) When possible be specific @ -No Did you speak to anyone other than the patient for history (EMS, parent, family, police, friend...)? What history was obtained from this source @ -Family supplemented history Did you review nursing and triage notes (agree or disagree)? Why? @ -I reviewed and agree with nursing and triage notes Were old charts reviewed (outside hosp., previous admission, EMS record, old EKG, old radiological studies, urgent care reports/EKG's, halfway records)? Report findings @ -No old charts were reviewed Differential Diagnosis (chest pain, altered mental status, abdominal pain women, abdominal pain men, vaginal bleeding, weakness, fever, dyspnea, syncope, headache, dizziness, GI bleed, back pain, seizure, CVA, palpatations, mental health, musculoskeletal)? @ -Differential Abdominal Pain Men: Appendicitis, cholecystitis, diverticulosis, ischemic bowel, pancreatitis, hepatitis, UTI, gastroenteritis, AAA, incarcerated hernia, bowel obstruction, constipation, inflammatory bowel, hepatitis, peptic ulcer disease, splenic infarction, perforated viscus, testicular torsion, this is not meant to be an all-inclusive list EKG interpreted by me (3pts min.). @ -None X-rays interpreted by me (1pt min.). @ -KUB revealed no acute process, no significant fecal retention CT interpreted by me (1pt min.). @ -None done U/S interpreted by me (1pt. min.). @ -None done What testing was considered but not performed or refused? (CT, X-rays, U/S, labs)? Why? @ -Lab work not indicated as patient has no red flag symptoms, abdomen is soft and nontender, patient states symptoms have improved after bowel movement What meds were considered but not given or refused? Why? @ -None Did you discuss the management of the patient with other professionals (professionals i.e. , PA, CLASSIFIED COPY CONTROL CLERK, lab, RT, psych nurse, healthcare social worker, patent lawyer, teacher, airline pilot/first officer, vocational case manager)? Give summary @ -No Was smoking cessation discussed for >3mins.? @ -No Was critical care preformed (if so, how long)? @ -No Were there social determinants of health that impacted care today? How? (Homelessness, low income, unemployed, alcoholism, drug addiction, tr ansportation, low edu. Level, literacy, decrease access to med. care, assisted, rehab)? @ -No Was there de-escalation of care discussed even if they declined (Discuss DNR or withdrawal of care, Hospice)? DNR status @ -No What co-morbidities impacted this encounter? (DM, HTN, Smoking, COPD, CAD, Cancer, CVA, ARF, Chemo, Hep., AIDS, mental health diagnosis, sleep apnea, morbid obesity)? @ -None Was patient admitted / discharged? Hospital course, mention meds given and route, prescriptions, significant lab abnormalities, going to OR and other pertinent info. @ -Patient was discharged. This is an 84-year-old male presenting to the ER with constipation x 5 days. No red flag symptoms. Vital signs within normal limits. Abdomen is soft and nontender to palpation. KUB reveals no acute process, no significant fecal retention. Enema was performed, large bowel movement was passed and patient states symptoms have improved and feels stable for discharge. Advised close follow-up with PCP and patient conveys understanding and agrees with plan. Return precautions discussed. Case was discussed with my ED attending Dr. Michaels. patient discharged in stable condition. Undiagnosed new problem with uncertain prognosis? @ -No Drug Therapy requiring intensive monitoring for toxicity (Heparin, Nitro, Insulin, Cardizem)? @ -No Were any procedures done? @ -No Diagnosis/symptom? @ -Constipation Acute, or Chronic, or Acute on Chronic? @ -Acute Uncomplicated (without systemic symptoms) or Complicated (systemic symptoms)? @ -Uncomplicated Side effects of treatment? @ -No Exacerbation, Progression, or Severe Exacerbation? @ -No Poses a threat to life or bodily function? How? (Chest pain, [place], [place], pneumonia, PE, COPD, DKA, ARF, appy, cholecystitis, CVA, Diverticulitis, Homicidal, Suicidal, threat to staff... and all critical care pts) @ -No Disposition Clinical Impression: Constipation Disposition: HOME SELF-CARE Condition: Stable Additional Instructions: Follow-up with PCP as discussed. Consume high-fiber foods and plenty of liquids. Please return to the Emergency Department if symptoms worsen or any other concerns. Is patient prescribed a controlled substance at d/c from ED?: No Referrals: Debbie Julian DO [Primary Care Provider] - 1-2 days Time of Disposition: 19:14
--- NOTE | 2024-08-01 17:10 | XR ---
EXAMINATION TYPE: XR KUB DATE OF EXAM: 08/01/2024 COMPARISON: 01/30/2024 INDICATION: Constipation TECHNIQUE: Single view abdomen FINDINGS: Specific bowel gas is within loops of bowel within the abdomen. There are some prominent central yeyo l loops. A couple of air-fluid levels may be within the ascending and descending colon. Psoas margins are normal. No organomegaly is present. Surgical markers are within the lower pelvis. IMPRESSION: 1. Nonspecific bowel gas pattern. Follow-up can be performed 2. Significant fecal retention is not evident. [facility], , 08/01/2024 5:08 PM
[2024-08-01 19:25] VITALS: BP 101/53; PULSE 45; RESP 18; TEMP 98.2
== END 2024-08-01 19:26 | disposition home or self-care (01) ==
LOC: EC 16:03
CPT/HCPCS: 74018; 99284